=== PATIENT | male | born 1930 | race Caucasian/White ===

== ENCOUNTER 2016-12-25 12:34 | Inpatient (IN) | payer MEDICARE ==
[~2016-12-25] VITALS: Ht 180.3 cm; Wt 122.2 kg
[~2016-12-25 12:34] MED LIST: AMLO2.5T PO; CEPH500C3 PO; LOVA1TAB47 PO; VICO7.5T PO
[2016-12-25 12:36] VITALS: BP 154/97; PULSE 89; RESP 20; TEMP 97.5; O2SAT 96
--- NOTE | 2016-12-25 12:56 | PD ---
Physical Exam Time Seen by Provider: 12:54 Narrative Pt presents to the ED for evaluation of BLE and abdominal edema for 1 month. SOB when laying down to sleep. Denies hx of heart failure. VSS. Awaiting bed placement. Data Data Last Documented VS Vital Signs Date Time Temp Pulse Resp B/P Pulse Ox O2 Delivery O2 Flow Rate FiO2 12/25/16 12:36 97.5 89 20 154/97 96 Room Air MDM Supervised Visit with ALEJANDRO: Gaby Rothman Dec 25, 2016 12:56
[2016-12-25] MEDS ORDERED: POTA-243 PO (13:36)
[2016-12-25] MEDS ORDERED: DOXY100C PO (13:36)
[2016-12-25] MEDS ORDERED: DOXY50 PO (13:36)
[2016-12-25] MEDS ORDERED: AMLO1POW4 (13:38)
[2016-12-25 13:40] VITALS: BP 182/82; PULSE 87; RESP 15; O2SAT 95
[2016-12-25] MEDS ORDERED: SODIUM CHLORIDE 0.9% FLUSH 10 ML FLUSH IV FLUSH PRN ×2 (14:45→19:00)
--- NOTE | 2016-12-25 15:11 | RADRPT ---
EXAM DATE/TIME: 12/25/2016 14:47 [facility] COMPARISON: No previous studies available for comparison. INDICATIONS : Cough, abdomen and feet swelling. MEDICAL HISTORY : None. SURGICAL HISTORY : None. ENCOUNTER: Initial ACUITY: 1 month PAIN SCORE: 0/10 LOCATION: Bilateral chest FINDINGS: A single view of the chest demonstrates the lungs to be symmetrically aerated without evidence of mas s, infiltrate or effusion. The cardiomediastinal contours are unremarkable. Osseous structures are intact. CONCLUSION: No acute disease. Rajendra Koch MD FACR on December 25, 2016 at 15:08 Board Certified Radiologist. This report was verified electronically.
--- NOTE | 2016-12-25 15:15 | PD ---
HPI Chief Complaint: GI Complaint Time Seen by Provider: 13:50 Travel History International Travel<30 days: No Contact w/Intl Traveler<30days: No Traveled to known affect area: No History of Present Illness HPI 86-year-old male came to the emergency room with history of abdominal distention and bilateral pedal edema that has been going on for past 1 month. Patient says he has gained about 25 pounds since this is started. He had seen his primary care physician for this who started him on lisinopril 10 mg. However patient has not had any change in his status. There is some degree of shortness of breath especially if he tries to lay flat. No history of chest pain. Vital signs were stable. Patient does not have any cardiac issue as for as he knows. He has history of cancer mainly prostate that was operated and melanoma that was operated as well. [facility] Past Medical History Narrative Medical List of his past medical, surgical, social and family history is reviewed from the nursing note. Hx Anticoagulant Therapy: Yes Cancer: Yes (SKIN CA) Cardiovascular Problems: Yes High Cholesterol: Yes Chemotherapy: Yes (Prostate) Endocrine: No Genitourinary: No Hypertension: Yes Immune Disorder: No Musculoskeletal: No Neurologic: No Psychiatric: No Reproductive: No Respiratory: No Radiation Therapy: Yes Tetanus Vaccination: < 5 Years Influenza Vaccination: Yes Past Surgical History Appendectomy: Yes Genitourinary Surgery: Yes (prostatectomy due to cancer) Joint Replacement: Yes (LT KNEE, LT JAW) Pacemaker: No Prostatectomy: Yes Social History Alcohol Use: No Tobacco Use: No Substance Use: No Allergies-Medications (Allergen,Severity, Reaction): Coded Allergies: No Known Allergies (Unverified , 12/25/16) Comments No known drug allergies. Reported Meds & Prescriptions Reported Meds & Active Scripts Active Reported Amlodipine Besylate 1 Gm Powder Klor-Con 10 (Potassium Chloride) 10 Meq Tab 10 Meq PO DAILY Doxycycline Hyclate 50 Mg Cap 50 Mg PO BID Doxycycline Hyclate 100 Mg Cap 100 Mg PO BID Narrative Medication List of his home medications reviewed from the nursing note. Review of Systems Except as stated in HPI: all other systems reviewed are Neg Physical Exam Narrative GENERAL: Awake, alert, morbidly obese, moderate distress SKIN: Focused skin assessment warm/dry. Edema below the nipple line HEAD: Atraumatic. Normocephalic. EYES: Pupils equal and round. No scleral icterus. No injection or drainage. ENT: No nasal bleeding or discharge. Mucous membranes pink and moist. NECK: Trachea midline. No JVD. CARDIOVASCULAR: Regular rate and rhythm. No murmur appreciated. RESPIRATORY: No accessory muscle use. Clear to auscultation. Breath sounds equal bilaterally. GASTROINTESTINAL: Abdomen soft, non-tender, distended but soft. Hepatic and splenic margins not palpable. MUSCULOSKELETAL: No obvious deformities. No clubbing. No cyanosis. 3+ pedal edema. NEUROLOGICAL: Awake and alert. No obvious cranial nerve deficits. Motor grossly within normal limits. Normal speech. PSYCHIATRIC: Appropriate mood and affect; insight and judgment normal. Data Data Last Documented VS Vital Signs Date Time Temp Pulse Resp B/P Pulse Ox O2 Delivery O2 Flow Rate FiO2 12/25/16 17:49 162/90 97 Room Air 12/25/16 17:48 77 16 12/25/16 12:36 97.5 Orders Complete Blood Count With Diff (12/25/16 14:45) Comprehensive Metabolic Panel (12/25/16 14:45) Lipase (12/25/16 14:45) Prothrombin Time / Inr (Pt) (12/25/16 14:45) Urinalysis - C+S If Indicated (12/25/16 14:45) Ct Abd/Pel W Iv Contrast(Rout) (12/25/16 14:45) Iv Access Insert/Monitor (12/25/16 14:45) Ecg Monitoring (12/25/16 14:45) Oximetry (12/25/16 14:45) Sodium Chloride 0.9% Flush (Ns Flush) (12/25/16 14:45) Electrocardiogram (12/25/16 14:45) B-Type Natriuretic Peptide (12/25/16 14:45) Troponin I (12/25/16 14:45) Chest, Single Ap (12/25/16 ) Sodium Chlor 0.9% 1000 Ml Inj (Ns 1000 M (12/25/16 17:00) Iohexol 350 Inj (Omnipaque 350 Inj) (12/25/16 17:09) Ct Abd/Pel W/O Iv Contrast (12/25/16 ) Admit To Inpatient (12/25/16 ) Vital Signs (Adult) MEGHAN.Q4H (12/25/16 18:03) Activity Oob Ad Kimberly (12/25/16 18:03) Resp Oxygen Moses C Titrat 1-4 L (12/25/16 ) Sodium Chloride 0.9% Flush (Ns Flush) (12/25/16 21:00) Inpatient Certification (12/25/16 ) Admit Order (Ed Use Only) (12/25/16 18:07) Labs Laboratory Tests Test 12/25/16 12/25/16 14:20 14:30 White Blood Count 8.5 TH/MM3 Red Blood Count 5.63 MIL/MM3 Hemoglobin 16.4 GM/DL Hematocrit 50.2 % Mean Corpuscular Volume 89.2 FL Mean Corpuscular Hemoglobin 29.2 PG Mean Corpuscular Hemoglobin 32.7 % Concent Red Cell Distribution Width 15.4 % Platelet Count 300 TH/MM3 Mean Platelet Volume 7.9 FL Neutrophils (%) (Auto) 63.4 % Lymphocytes (%) (Auto) 24.9 % Monocytes (%) (Auto) 9.5 % Eosinophils (%) (Auto) 1.6 % Basophils (%) (Auto) 0.6 % Neutrophils # (Auto) 5.4 TH/MM3 Lymphocytes # (Auto) 2.1 TH/MM3 Monocytes # (Auto) 0.8 TH/MM3 Eosinophils # (Auto) 0.1 TH/MM3 Basophils # (Auto) 0.1 TH/MM3 CBC Comment DIFF FINAL Differential Comment Prothrombin Time 10.8 SEC Prothromb Time International 1.0 RATIO Ratio Sodium Level 139 MEQ/L Potassium Level 4.4 MEQ/L Chloride Level 106 MEQ/L Carbon Dioxide Level 27.3 MEQ/L Anion Gap 6 MEQ/L Blood Urea Nitrogen 27 MG/DL Creatinine 1.18 MG/DL Estimat Glomerular Filtration 59 ML/MIN Rate Random Glucose 104 MG/DL Calcium Level 9.8 MG/DL Total Bilirubin 0.2 MG/DL Aspartate Amino Transf 27 U/L (AST/SGOT) Alanine Aminotransferase 25 U/L (ALT/SGPT) Alkaline Phosphatase 121 U/L Troponin I LESS THAN 0.02 NG/ML B-Type Natriuretic Peptide 44 PG/ML Total Protein 5.8 GM/DL Albumin 1.3 GM/DL Lipase 121 U/L Urine Color YELLOW Urine Turbidity HAZY Urine pH 6.5 Urine Specific [place] 1.045 Urine Protein GREATER THAN 600 mg/dL Urine Glucose (UA) NEG mg/dL Urine Ketones NEG mg/dL Urine Occult Blood MOD Urine Nitrite NEG Urine Bilirubin NEG Urine Urobilinogen LESS THAN 2.0 MG/DL Urine Leukocyte Esterase NEG Urine RBC 2 /hpf Urine WBC 4 /hpf Urine Squamous Epithelial 1 /hpf Cells Urine Hyaline Casts 9 /lpf Urine Mucus MANY /lpf Microscopic Urinalysis Comment CULT NOT INDICATED MDM Medical Decision Making Medical Screen Exam Complete: Yes Emergency Medical Condition: Yes Medical Record Reviewed: Yes Interpretation(s) Twelve-lead EKG was reviewed by me. Normal sinus rhythm, left axis deviation, PACs, first-degree AV block, incomplete right bundle branch block, nonspecific ST-T wave changes. Heart rate of 77 bpm. Differential Diagnosis Intra-abdominal mass compressing on the IVC, congestive heart failure, right- sided heart failure Narrative Course 3:15 PM awaiting for the blood test results. Awaiting for the CAT scan to be done and resulted. 5:40 PM UA and chemistry suggestive of some dehydration. He was given 1 L of IV fluid bolus. The CAT scan was done and the radiologist call me with a report of a heterogeneous large intra-abdominal mass that he could see. The origin of the mass is unknown at this point. He has requested for a CT without IV contrast. This has been ordered. Awaiting for the CT to be done and resulted. Procedures EKG Prior to Arrival: No Diagnosis Primary Impression: Intraabdominal mass Additional Impressions: Ascites Qualified Code: R18.0 - Malignant ascites Pedal edema Admitting Information Admitting Physician Requests: Admit Scripts Ciprofloxacin (Cipro)500 Mg [id number] Mg PO BID 7 Days Ref 0 Prov:Nevin Espinal 12/27/16 Ondansetron Odt (Zofran Odt)4 Mg Tab4 Mg SL Q6HR PRN (Nausea/Vomiting) #10 TAB Ref 0 Prov:Ahsan Cowart MD R1 12/27/16 Hydrocodone-Acetaminophen ([place])5-325 mg Tab1 Tab PO Q4H PRN (PAIN) #10 TAB Ref 0 Prov:Ahsan Cowart MD R1 12/27/16 Alisha Laird MD Dec 25, 2016 15:15
[2016-12-25 15:38] LABS: AUTOMATED NEUTROPHIL # 5.4 TH/MM3 (1.8-7.7); BASOPHIL # 0.1 TH/MM3 (0-0.2); BASOPHIL % 0.6 % (0.0-2.0); EOSINOPHIL # 0.1 TH/MM3 (0-0.4); EOSINOPHIL % 1.6 % (0.0-4.0); HEMATOCRIT 50.2 % (39.0-51.0); HEMO FLAGS DIFF FINAL; LYMPH % 24.9 % (9.0-44.0); LYMPHOCYTE # 2.1 TH/MM3 (1.0-4.8); MEAN CELL VOLUME 89.2 FL (80.0-100.0); MEAN CORPUSCULAR HEMOGLOBIN 29.2 PG (27.0-34.0); MEAN CORPUSCULAR HGB CONC 32.7 % (32.0-36.0); MONO % 9.5 % (0.0-8.0); NEUT % 63.4 % (16.0-70.0); PLATELET COUNT 300 TH/MM3 (150-450); RED BLOOD COUNT 5.63 MIL/MM3 (4.50-5.90); RED CELL DISTRIBUTION WIDTH 15.4 % (11.6-17.2); WHITE BLOOD COUNT 8.5 TH/MM3 (4.0-11.0)
[2016-12-25 15:51] LABS: BLOOD, URINE MOD (NEG); COMMENT (UR) CULT NOT INDICATED; CULTURE IF INDICATED CULT NOT INDICATED; GLUCOSE,URINE NEG (NEG); HYALINE CAST, URINE 9 /lpf (RARE); KETONE, URINE NEG (NEG); MUCUS URINE MANY /lpf (OCC); NITRITE,URINE NEG (NEG); PH, URINE 6.5 (5.0-8.5); SQUAMOUS EPITHELIAL CELL URINE 1 /hpf (0-5); URINE COLOR YELLOW (YELLW/STRAW)
[2016-12-25 15:57] LABS: PROTHROMBIN TIME - PATIENT 10.8 SEC (9.8-11.6)
[2016-12-25 16:01] LABS: ANION GAP 6 MEQ/L (5-15); AST (GOT) 27 U/L (15-37); BICARBONATE 27.3 MEQ/L (21.0-32.0); BLOOD UREA NITROGEN 27 MG/DL (7-18); CHLORIDE 106 MEQ/L (98-107); GLOMERULAR FILTRATION RATE 59 ML/MIN (>89); POTASSIUM 4.4 MEQ/L (3.5-5.1); SODIUM (NA) 139 MEQ/L (136-145)
[2016-12-25 16:07] LABS: ALKALINE PHOSPHATASE 121 U/L (45-117); ALT (GPT) 25 U/L (12-78); TOTAL BILIRUBIN ADULT 0.2 MG/DL (0.2-1.0)
[2016-12-25] MEDS ORDERED: SODIUM CHLOR 0.9% 1000 ML INJ 1,000 ML IV ONE (17:00)
[2016-12-25] MEDS ORDERED: IOHEXOL 350 MG/ML 10 ML VIAL (for RAD DIAG) IV ONE (17:09)
[2016-12-25 17:48] VITALS: BP 165/92; PULSE 77; RESP 16; O2SAT 96
[2016-12-25 17:49] VITALS: BP 162/90; O2SAT 97
--- NOTE | 2016-12-25 18:05 | RADRPT ---
EXAM DATE/TIME: 12/25/2016 17:07 [facility] COMPARISON: No previous studies available for comparison. INDICATIONS : Diffuse abdomen pain with ascites. IV CONTRAST: 96 cc Omnipaque 350 (iohexol) IV ORAL CONTRAST: No oral contrast ingested. RADIATION DOSE: 16.78 CTDIvol (mGy) MEDICAL HISTORY : Hypertension. Cardiovascular disease SURGICAL HISTORY : Appendectomy. Prostatectomy. ENCOUNTER: Initial ACUITY: 4 - 6 days PAIN SCALE: 5/10 LOCATION: Bilateral abdomen TECHNIQUE: Volumetric scanning of the abdomen and pelvis was performed. Using automated exposure control and ad justment of the mA and/or kV according to patient size, radiation dose was kept as low as reasonably achievable to obtain optimal diagnostic quality images. DICOM format image data is available electro nically for review and comparison. FINDINGS: LOWER LUNGS: Trace left and trace right pleural effusions calcified granulomas at the left lung base. LIVER: There is a 1.2 cm hypodense lesion in the deep posterior right lobe of the liver which is too small t o fully characterize. Liver is otherwise grossly unremarkable. Spleen is normal in size. Several smal l calcifications in the spleen consistent with prior granulomatous disease. PANCREAS: Within normal limits. KIDNEYS: Kidneys demonstrate symmetrical size and symmetrical enhancement. There is ill-defined isodense lesio n in the inferior pole of the left kidney which appears to emanate from the renal pelvis. No evidence for hydronephrosis. ADRENAL GLANDS: Within normal limits. VASCULAR: Atherosclerotic opacifications of the infrarenal abdominal aorta. BOWEL/MESENTERY: There is a very large heterogeneous mesenteric mass occupying nearly the entire left abdomen with ass ociated mass effect on the bowel. This mass measures approximately 23.2 x 15.1 x 18.1 cm and is predo minantly fat in density of the there is also a 9.1 x 5.8 x 11.9 cm fluid density component. Additiona l mesenteric and retroperitoneal likely enhancing lesions are also noted. The largest mesenteric mass is in the mid upper abdomen just anterior and inferior to the pancreas measuring 2.6 x 1.9 cm. The l argest retroperitoneal mass or measures 1.5 x 1.4 cm in the posterior perinephric region. There is a small amount of free fluid noted in the deep pelvis. ABDOMINAL WALL: Diffuse soft tissue anasarca particularly in the lower abdomen. RETROPERITONEUM: There is no lymphadenopathy. BLADDER: No wall thickening or mass. REPRODUCTIVE: Postsurgical features are of radical prostatectomy INGUINAL: There is no lymphadenopathy or hernia. MUSCULOSKELETAL: Partially imaged lipoma in the left medial thigh. No definite abnormal lytic or blastic bony lesions. CONCLUSION: 1. Abnormal examination demonstrating a very large heterogeneous predominantly fat containing mesent konstantin mass occupying nearly the entire left abdomen measuring 23.2 x 15.1 x 18.1 cm with additional me senteric and retroperitoneal satellite lesions, as above. In the absence of recent trauma, this mass is concerning for an infiltrative malignancy or lipomatous mass such as liposarcoma. Lack of noncontr ast images limits evaluation of degree of enhancement versus potentially high density material in the mass. Noncontrast CT examination may be performed to definitively assess degree of enhancement. Alte rnatively, MRI examination may be performed for further characterization if there is continued uncert ainty. 2. Ill-defined isodense central lesion in the left renal inferior pole measuring approximately 3.8 x 2.5 cm. Differential considerations include renal lymphoma versus complex parapelvic cyst versus tra nsitional cell carcinoma. This may be further evaluated with MRI or CT renal mass protocol. 3. Trace free fluid in the pelvis with diffuse soft tissue anasarca is prominent in the lower abdomen . 4. Trace bilateral pleural effusions. José Miguel Cannon MD on December 25, 2016 at 17:21 Board Certified Radiologist. This report was verified electronically.
[2016-12-25 18:32] VITALS: BP 158/86
--- NOTE | 2016-12-25 18:37 | HHI.HP ---
HPI Service Family Medicine Primary Care Physician Unknown Admission Diagnosis intra-abdominal mass, possible malignancy, ascites Diagnoses: Chief Complaint: " I have an abdominal mass." International Travel<30 Days: No Contact w/Intl Traveler<30days: No Known Affected Area: No History of Present Illness Patient is a 86 y/o w/ hx of prostate cancer and melanoma removal. Abdominal mass started to appear 4-5 weeks ago. Noticed 22 lb weight gain. No N/V/pain. No fevers, night sweats. No diarrhea. Has noticed constipation in the last couple days this week, relieved with X lax. Has not experienced anything like this in the past. Hx of prostate cancer 20 years ago, treated with surgery. Patient denies change in urine frequency or flow or hematuria. Denies recent travel, insect bites, chest pain, SOB (although states he occasionally has to take a few extra deep breaths), alcohol use, hx of GI disease. Patient is taking doxycycline for recent infection of jaw fissure. Review of Systems Constitutional: COMPLAINS OF: Weight gain, DENIES: Fatigue, Fever, Change in appetite Endocrine: DENIES: Heat/cold intolerance, Polydipsia, Polyuria Eyes: DENIES: Blurred vision, Eye pain, Vision loss Ears, nose, mouth, throat: DENIES: Hearing loss, Hoarseness, Epistaxis Respiratory: DENIES: Cough, Hemoptysis, Shortness of breath Cardiovascular: COMPLAINS OF: Lower Extremity Edema, DENIES: Chest pain, Palpitations, Syncope Gastrointestinal: DENIES: Abdominal pain, Bloody stools, Diarrhea, Nausea Genitourinary: DENIES: Urinary frequency, Urinary incontinence, Urgency Musculoskeletal: DENIES: Joint pain, Muscle aches, Stiffness Integumentary: DENIES: Abnormal pigmentation, Nail changes, Rash Hematologic/lymphatic: DENIES: Bruising Neurologic: DENIES: Headache, Localized weakness, Seizures Psychiatric: DENIES: Anxiety, Mood changes, Depression Past Family Social History Past Medical History HTN, hx of infection of jaw fissure, hx of cancer Allergies: Coded Allergies: No Known Allergies (Unverified , 12/25/16) Family History Mom: age 94, no known cause Dad: 68, cancer Social History No smoking or drinking. No recreational drugs. Physical Exam Vital Signs Vital Signs Date Time Temp Pulse Resp B/P Pulse Ox O2 Delivery O2 Flow Rate FiO2 12/25/16 17:49 162/90 97 Room Air 12/25/16 17:48 77 16 165/92 96 Room Air 12/25/16 13:40 16 12/25/16 13:40 87 15 182/82 95 Room Air 12/25/16 12:36 97.5 89 20 154/97 96 Room Air Physical Exam GENERAL: This is a well-nourished, well-developed patient, in no apparent distress. SKIN: No rashes, ecchymoses or lesions. Cool and dry. HEAD: Atraumatic. Normocephalic. EYES: Pupils equal round and reactive. Extraocular motions intact. No scleral icterus. No injection or drainage. ENT: Throat without erythema, tonsillar hypertrophy or exudate. Uvula midline. Airway patent. NECK: Trachea midline. No JVD. CARDIOVASCULAR: Regular rate and rhythm. 3/6 systolic murmer in the right upper sternal border. RESPIRATORY: Clear to auscultation. Breath sounds equal bilaterally. No wheezes , rales, or rhonchi. GASTROINTESTINAL: Abdomen significantly distended. Dull to percussion. Diminished bowel sounds in all four quadrants. No hepato-splenomegaly, or palpable masses. Non-tender to palpation. MUSCULOSKELETAL: 3+ pitting edema in the lower extremities. 2+ pitting edema in the upper extremities. No cyanosis. NEUROLOGICAL: Awake and alert. Cranial nerves II through XII intact. Motor and sensory grossly within normal limits. Five out of 5 muscle strength in all muscle groups. Normal speech. Laboratory Laboratory Tests Test 12/25/16 12/25/16 14:20 14:30 White Blood Count 8.5 Red Blood Count 5.63 Hemoglobin 16.4 Hematocrit 50.2 Mean Corpuscular Volume 89.2 Mean Corpuscular Hemoglobin 29.2 Mean Corpuscular Hemoglobin 32.7 Concent Red Cell Distribution Width 15.4 Platelet Count 300 Mean Platelet Volume 7.9 Neutrophils (%) (Auto) 63.4 Lymphocytes (%) (Auto) 24.9 Monocytes (%) (Auto) 9.5 Eosinophils (%) (Auto) 1.6 Basophils (%) (Auto) 0.6 Neutrophils # (Auto) 5.4 Lymphocytes # (Auto) 2.1 Monocytes # (Auto) 0.8 Eosinophils # (Auto) 0.1 Basophils # (Auto) 0.1 CBC Comment DIFF FINAL Differential Comment Prothrombin Time 10.8 Prothromb Time International 1.0 Ratio Sodium Level 139 Potassium Level 4.4 Chloride Level 106 Carbon Dioxide Level 27.3 Anion Gap 6 Blood Urea Nitrogen 27 Creatinine 1.18 Estimat Glomerular Filtration 59 Rate Random Glucose 104 Calcium Level 9.8 Total Bilirubin 0.2 Aspartate Amino Transf 27 (AST/SGOT) Alanine Aminotransferase 25 (ALT/SGPT) Alkaline Phosphatase 121 Troponin I LESS THAN 0.02 B-Type Natriuretic Peptide 44 Total Protein 5.8 Albumin 1.3 Lipase 121 Urine Color YELLOW Urine Turbidity HAZY Urine pH 6.5 Urine Specific [place] 1.045 Urine Protein GREATER THAN 600 Urine Glucose (UA) NEG Urine Ketones NEG Urine Occult Blood MOD Urine Nitrite NEG Urine Bilirubin NEG Urine Urobilinogen LESS THAN 2.0 Urine Leukocyte Esterase NEG Urine RBC 2 Urine WBC 4 Urine Squamous Epithelial 1 Cells Urine Hyaline Casts 9 Urine Mucus MANY Microscopic Urinalysis Comment CULT NOT INDICATED Result Diagram: 12/25/16 1420 12/25/16 1420 Imaging Last Impressions Abdomen/Pelvis CT 12/25/16 1445 Signed Impressions: Service Date/Time: Sunday, December 25, 2016 17:07 - CONCLUSION: 1. Abnormal examination demonstrating a very large heterogeneous predominantly fat containing mesenteric mass occupying nearly the entire left abdomen measuring 23.2 x 15.1 x 18.1 cm with additional mesenteric and retroperitoneal satellite lesions, as above. In the absence of recent trauma, this mass is concerning for an infiltrative malignancy or lipomatous mass such as liposarcoma. Lack of noncontrast images limits evaluation of degree of enhancement versus potentially high density material in the mass. Noncontrast CT examination may be performed to definitively assess degree of enhancement. Alternatively, MRI examination may be performed for further characterization if there is continued uncertainty. 2. Ill-defined isodense central lesion in the left renal inferior pole measuring approximately 3.8 x 2.5 cm. Differential considerations include renal lymphoma versus complex parapelvic cyst versus transitional cell carcinoma. This may be further evaluated with MRI or CT renal mass protocol. 3. Trace free fluid in the pelvis with diffuse soft tissue anasarca is prominent in the lower abdomen. 4. Trace bilateral pleural effusions. José Miguel Cannon MD Chest X-Ray 12/25/16 0000 Signed Impressions: Service Date/Time: Wednesday, December 25, 2016 14:47 - CONCLUSION: No acute disease. Rajendra Koch MD FACR Assessment and Plan Assessment and Plan 86 y/o M w/hx of prostate cancer and melanoma who is admitted for work-up of abdominal mass. CT of abdomen on admission shows 23.2 x 15.1 x 18.1 cm mesenteric mass and retroperitoneal satellite lesion, Ill-defined isodense central lesion in the left renal inferior pole measuring approximately 3.8 x 2.5 cm, and free fluid and diffuse anasarca. Abdominal enlargement likely due to multiple cancerous tumors. Code Status FULL Discussed Condition With Patient and at bedside. 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 Was given in the ED - Will hold off lasix for now, will assess tomorrow with new labs (CBC, CMP) (3) Systolic murmur Status: Acute Plan: - 3/6 murmer heard in the upper right sternal border -patient has no cardiac hx - will order echo (4) HTN (hypertension) Status: Acute Plan: - controlled on home med amlodipine - patient forgot to take today. Last recorded . - start amlodipine 5 mg PO daily FEN: regular diet, NPO after midnight DVT prophy: SCDs Dispo: Pending consultation with onc and surgery. Physician Certification 2 Midnight Certification Type: Admission for Inpatient Services Order for Inpatient Services The services are ordered in accordance with Medicare regulations or non- Medicare payer requirements, as applicable. In the case of services not specified as inpatient-only, they are appropriately provided as inpatient services in accordance with the 2-midnight benchmark. Estimated LOS (days): 3 days is the estimated time the patient will need to remain in the hospital, assuming treatment plan goals are met and no additional complications. Post-Hospital Plan: Home Christie Wright MD R1 Dec 25, 2016 18:37
[2016-12-25] MEDS ORDERED: ACETAMINOPHEN 325 MG TAB PO PRN (19:00)
[2016-12-25] MEDS ORDERED: ONDANSETRON HCL 4 MG/2 ML VIAL IVP PRN (19:00)
[2016-12-25] MEDS ORDERED: NALOXONE HCL 0.4 MG/ML AMP IV PRN (19:00)
[2016-12-25] MEDS ORDERED: SENNOSIDES 8.6 MG TAB PO PRN (19:00)
[2016-12-25] MEDS ORDERED: BISACODYL 10 MG SUPP RECTAL PRN (19:00)
[2016-12-25] MEDS ORDERED: LACTULOSE SYRUP 20 GM/30 ML CUP PO PRN (19:00)
[2016-12-25] MEDS ORDERED: MAGNESIUM HYDROXIDE SUSP 30 ML CUP PO PRN (19:00)
[2016-12-25 20:00] VITALS: BP 178/99; PULSE 78; RESP 18; TEMP 96; O2SAT 95
[2016-12-25] MEDS ORDERED: SODIUM CHLORIDE 0.9% FLUSH 10 ML FLUSH IV FLUSH SCH (21:00)
[2016-12-25] MEDS: SODIUM CHLORIDE 0.9% FLUSH 10 ML FLUSH IV FLUSH SCH (21:00)
[2016-12-25] MEDS: DOCUSATE SODIUM 50 MG/SENNA 8.6 MG TAB PO SCH (21:00)
[2016-12-25] MEDS ORDERED: amLODIPine BESYLATE 5 MG TAB PO ONE (22:00)
[2016-12-25] MEDS ORDERED: ENALAPRILAT 1.25 MG/ML VIAL IV PRN (22:00)
[2016-12-25] MEDS ORDERED: SODIUM CHLORID 0.9% 500 ML INJ 500 ML IV ONE (22:45)
[2016-12-26] VITALS (7 sets, daily range): BP systolic 145–163; BP diastolic 72–89; PULSE 76–91; RESP 16–18; TEMP 96.4–98.4; O2SAT 93–99
--- NOTE | 2016-12-26 05:49 | MB ---
cc: YVONNE GARNER,GIA Robertson MD DATE OF 1930 DATE OF SERVICE 12/25/[address] Soriano Antibody identification CHIEF COMPLAINT Dr. Wright requests a consultation for Mr. Quiñones with abdominal mass, suspected sarcoma. HISTORY OF PRESENT ILLNESS Mr. Quiñones is an 86-year-old man with history of prostate cancer and melanoma. He has excellent performance status. He lives with his . He continues to drive. He has a great appetite, no changes in bowel habits. He has no early satiety. He has been gaining weight. He reports that he has been obese later on in life but he is noted an increase in his abdominal girth over the last 4-5 weeks. He has noticed a 22-pound weight gain over the past month. He presented to the emergency room with GI complaints of the abdominal distension. He has developed pedal edema. He had some shortness of breath when he lies flat although he denies any symptoms lying on his side. Imaging study was performed, a CT scan of the abdomen and pelvis on 12/25/2016 that shows an abnormal, large, heterogeneous fat-containing mesenteric mass occupying the entire left abdomen measuring 23.2 x 15.1 x 18.1-cm. There are additional mesenteric and retroperitoneal satellite lesions. There is also an ill-defined isodense central lesion in the left kidney measuring 3.8 x 2.5 cm. There is trace pleural effusion and questionable 1.2 cm hyperdense lesion in the posterior right lobe of the liver. This was considered too small to fully characterize on CT scan. He is admitted for evaluation of the above. His labs shows normal renal function. His BUN is mildly elevated at 27. Renal function shows a creatinine of 1.18, alkaline phosphatase is elevated. His albumin is decreased at 1.3. Urinalysis shows a significant amount of proteinuria and occult blood positivity. He denies any fevers, chills or night sweats. PAST MEDICAL HISTORY 1. Hypertension. 2. Prostate cancer. 3. Melanoma. 4. Obesity. 5. Lower extremity edema. 6. 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 PAST SURGICAL HISTORY 1. Appendectomy. 2. Prostatectomy. 3. Left jaw surgery. SOCIAL HISTORY He is , lives with his . Denies any tobacco, alcohol or illicit drug use. He is a never smoker. FAMILY HISTORY Father of head and neck cancer/throat cancer at age 64. Mother of an cerebral aneurysm at age 94. PHYSICAL EXAMINATION VITAL SIGNS: Temperature 96.0, heart rate 78, respiratory rate 18, blood pressure 178/99, saturation 95%. GENERAL: Mr. Quiñones is a well-developed, well-nourished, pleasant elderly man in no acute distress. His pupils are round, reactive to light and accommodation. Oropharynx is clear. NECK: Supple. The defect in his left jaw, well-healed scar. LUNGS: Clear to auscultation. CARDIOVASCULAR: Exam reveals normal rate and rhythm. ABDOMEN: Large and distended. There is a mass in firmness occupying the left side of the abdomen. The right side is soft. No inguinal adenopathy. No axillary adenopathy. EXTREMITIES: Lower extremity with 2+ pitting edema. Good pulses are palpable. LABORATORY DATA As described above. IMAGING STUDIES Described above. ASSESSMENT AND PLAN Mr. Quiñones is an 86-year-old man with history of hypertension, melanoma and prostate cancer. He has experienced a 22-pound weight gain and increasing abdominal girth. Imaging studies show a large mesenteric mass on the left side in addition to a kidney mass, a questionable liver lesion and satellite lesion of the mesenteric mass. I had a lengthy discussion with Mr. Quiñones of the differential diagnoses for this mass. Concerning in light of its radiographic features is a liposarcoma. We discussed the differential to include liposarcoma versus kidney cancer versus lymphoma. MRI of the abdomen and pelvis have already been ordered by Dr. Laird. We will follow these results. It would help to delineate better the 1.2 cm lesion in the liver to rule out metastatic disease. The mesenteric mass is concerning for sarcoma. There is a renal mass. Whether this is metastatic renal cell cancer versus two primaries is concerning. CT scan of the chest will be performed to rule out metastatic disease. Noted is a pleural effusion which may be related to the pressure and congestion of the large abdominal mass. He is noted to have lower extremity edema as his main presentation. 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 A 24-hour urine protein evaluation will be initiated up. It is possible that direct compression may cause the above changes. It does not, however, explain the low albumin that is seen in his laboratory evaluation. The case was discussed with Radiology. I would be in favor of CT-guided biopsy given the proximity of the mass in the abdominal wall. This would be an easy biopsy to obtain a diagnosis. It is also concerning that he may not be a surgical candidate at the rapidity of which this mass is growing from his clinical history. The oncologic surgeon, Dr. Miramontes, has been consulted. Mr. Quiñones's questions were answered to his satisfaction. Yvonne Garner MD RAD/SSB /10:57 PM /5:34 AM
[2016-12-26 06:35] LABS: AUTOMATED NEUTROPHIL # 4.3 TH/MM3 (1.8-7.7); BASOPHIL # 0.1 TH/MM3 (0-0.2); BASOPHIL % 0.8 % (0.0-2.0); EOSINOPHIL # 0.2 TH/MM3 (0-0.4); EOSINOPHIL % 2.3 % (0.0-4.0); HEMATOCRIT 48.6 % (39.0-51.0); HEMO FLAGS DIFF FINAL; LYMPH % 31.9 % (9.0-44.0); LYMPHOCYTE # 2.5 TH/MM3 (1.0-4.8); MEAN CELL VOLUME 88.5 FL (80.0-100.0); MEAN CORPUSCULAR HEMOGLOBIN 29.3 PG (27.0-34.0); MEAN CORPUSCULAR HGB CONC 33.1 % (32.0-36.0); MONO % 9.3 % (0.0-8.0); NEUT % 55.7 % (16.0-70.0); PLATELET COUNT 312 TH/MM3 (150-450); RED BLOOD COUNT 5.49 MIL/MM3 (4.50-5.90); RED CELL DISTRIBUTION WIDTH 15.3 % (11.6-17.2); WHITE BLOOD COUNT 7.7 TH/MM3 (4.0-11.0)
[2016-12-26 06:46] LABS: ALT (GPT) 23 U/L (12-78); ANION GAP 5 MEQ/L (5-15); AST (GOT) 22 U/L (15-37); BICARBONATE 26.4 MEQ/L (21.0-32.0); BLOOD UREA NITROGEN 25 MG/DL (7-18); CHLORIDE 110 MEQ/L (98-107); GLOMERULAR FILTRATION RATE 63 ML/MIN (>89); POTASSIUM 4.3 MEQ/L (3.5-5.1); SODIUM (NA) 141 MEQ/L (136-145)
[2016-12-26 06:49] LABS: ALKALINE PHOSPHATASE 112 U/L (45-117); LDH SERUM 123 U/L (87-241); TOTAL BILIRUBIN ADULT 0.2 MG/DL (0.2-1.0)
--- NOTE | 2016-12-26 07:40 | HHI.FPPN ---
Subjective Remarks Carlos Quiñones is an 86 yo gentleman with history of prostate cancer and melanoma who initially presented to ER for abdominal distention and peripheral edema of 4 -5 week duration. Associated with 20 pound weight gain. He denies fevers, night sweats, SOB. + recent constipation, which resolved with ex lax. For further details, please see resident H&P. This morning, he is seen with his significant other at the bedside. He and his partner express understanding regarding the concern for cancer. They are potentially interested in seeking care at [facility], once results are obtained. Overnight, he reports some difficulty sleeping, both from mind racing with anticipated diagnosis and with discomfort in hospital bed. Last BM yesterday, described as loose secondary to doxycycline use. ROS: + edema. No SOB, No chest pain. + difficulty sleeping. + recent weight gain (edema). No n/v, no abdominal pain. All other systems reviewed are negative. PMH/PSxH/SocHx/FamHx: Per resident H&P. Significant for: HTN, melanoma s/p surgical resection, prostate CA s/p prostatectomy. 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 Appendectomy. Father from head and neck cancer at 64yo. Mother with aneurysm in her 90s. Lives with significant other. No tobacco, alcohol, or recreational drug use. 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 Objective Vitals Vital Signs Date Time Temp Pulse Resp B/P Pulse Ox O2 Delivery O2 Flow Rate FiO2 12/26/16 04:00 96.6 82 18 150/83 98 12/26/16 00:00 96.9 85 18 146/72 97 12/25/16 20:00 96.0 78 18 178/99 95 12/25/16 18:32 78 16 158/86 97 12/25/16 17:49 162/90 97 Room Air 12/25/16 17:48 77 16 165/92 96 Room Air 12/25/16 13:40 16 12/25/16 13:40 87 15 182/82 95 Room Air 12/25/16 12:36 97.5 89 20 154/97 96 Room Air I/O 12/25/16 12/25/16 12/25/16 12/26/16 12/26/16 12/26/16 07:00 15:00 23:00 07:00 15:00 23:00 Intake Total 480 ml Output Total 250 ml Balance 230 ml Intake Oral 480 ml Output Urine Total 250 ml Result Diagram: 12/26/16 0523 12/26/16522 Objective Remarks GENERAL: in NAD, no resp distress. Nontoxic. Accompanied by significant other. HEENT: NCAT, EOMI, no scleral icterus. No conjunctival injection. MMM. NECK: Supple, no meningeal signs. No carotid bruits. CV: 2/6 systolic murmur heard best at right upper sternal border. RRR, S1 S2. CHEST/PULM: CTAB, no crackles, no wheezes. ABD/GI: +BS, soft, Nontender. Obese. Mild distention. Dullness to percussion along left abdomen, which correlates to firmness / mass palpable. EXT: 2+ pitting edema to knee. 1+ pitting edema at upper extremities. No calf tenderness. NEURO: awake, alert, normal muscle tone. Grossly nonfocal. SKIN: No rashes, no jaundice. PSYCH: Mood and affect are appropriate. Speech fluent. Does not appear to respond to internal stimuli. A/P Assessment and Plan 86 y/o M w/hx of prostate cancer and melanoma who is admitted for work-up of abdominal mass. CT of abdomen on admission shows 23.2 x 15.1 x 18.1 cm mesenteric mass and retroperitoneal satellite lesion, Ill-defined isodense central lesion in the left renal inferior pole measuring approximately 3.8 x 2.5 cm, and free fluid and diffuse anasarca. Abdominal enlargement likely due to multiple cancerous tumors. Attending Attestation Patient seen, examined, and discussed with resident team. The patient has been seen and examined. The chart and all resident notes have been reviewed. I agree that inpatient care is appropriate and that a two midnight stay is expected for the reasons documented in the resident history and physical. I have discussed this with the resident and certify the resident s order for inpatient admission. Problem List: (1) Intraabdominal mass Status: Acute Plan: Concern for malignancy. CT guided biopsy ordered [facility]. Await recs pending results of biopsy. Diagnostic evaluation: CT abdomen with IV contrast: (1) Abnormal examination demonstrating a very large heterogeneous predominantly fat containing mesenteric mass occupying nearly the entire left abdomen measuring 23.2 x 15.1 x 18.1 cm with additional mesenteric and retroperitoneal satellite lesions. In the absence of recent trauma, this mass is concerning for an infiltrative malignancy of lipomatous mass such as liposarcoma. (2) Ill-defined isodense central lesion in the left renal inferior pole measuring approximately 3.8 x 2.5 cm. Differential considerations include renal lymphoma vs complex parapelvic cyst vs transitional cell carcinoma. CT abdomen without IV contrast: (1) Inconclusive variable degree of density differences in the large heterogeneous left mesenteric mass without convincing evidence for significant enhancement in the lipomatous portion. There is significant progressive enhancement given recent contrast administration. This may reflect a very homogeneous and uniform mass such as lymphoma. Differential consideration does include sequela of prior trauma with resolving hematoma although apparently this is inconsistent with clinical history. (2) Isodense infiltrative lesion in the mid left renal pelvis which appears to involve the anterior cortex; doesn't appear to emanate from the renal collecting system and demonstrates no significant enhancement. Differential consideration includes complex peripelvic cyst. CT chest: pending MRI abdomen: pending CT guided biopsy of abdomen: pending (2) Edema of extremities Status: Acute Plan: Suspect secondary to third spacing, but patient with protein-wasting nephropathy. Edema mildly improved today. Will monitor and consider lasix administration. (3) Systolic murmur Status: Acute Plan: - 2/6 murmer heard in the upper right sternal border -patient has no cardiac hx and no known valvular disease - Await results of echocardiogram (4) HTN (hypertension) Status: Chronic Plan: - Continue home amlodipine. (5) Proteinuria Status: Acute Plan: Unclear etiology. Await 24 hour urine. Consider nephrology consult based on results. Piedad Palma MD Dec 26, 2016 07:40 Status: Acute Piedad Palma MD Dec 26, 2016 07:40
[2016-12-26] MEDS: SODIUM CHLORIDE 0.9% FLUSH 10 ML FLUSH IV FLUSH SCH ×2 (08:10→21:00)
[2016-12-26] MEDS: DOCUSATE SODIUM 50 MG/SENNA 8.6 MG TAB PO SCH ×2 (09:00→21:00)
--- NOTE | 2016-12-26 10:07 | RADRPT ---
EXAM DATE/TIME: 12/25/2016 18:36 [facility] COMPARISON: CT ABDOMEN & PELVIS W CONTRAST, December 25, 2016, 17:07. INDICATIONS : Abnormal previous CT scan today. ORAL CONTRAST: No oral contrast ingested. RADIATION DOSE: 21.30 CTDIvol (mGy) MEDICAL HISTORY : Carcinoma, prostate. Cardiovascular disease Hypertension. SURGICAL HISTORY : Appendectomy. Prostatectomy. ENCOUNTER: Initial ACUITY: 1 day PAIN SCALE: 0/10 LOCATION: [facility] TECHNIQUE: Volumetric scanning of the abdomen and pelvis was performed. Using automated exposure control and ad justment of the mA and/or kV according to patient size, radiation dose was kept as low as reasonably achievable to obtain optimal diagnostic quality images. DICOM format image data is available electro nically for review and comparison. FINDINGS: Noncontrast CT examination was performed for comparison to post contrast images to determine degree o f enhancement of a large left-sided mesenteric mass. If the apparent uniform fluid density portion of the mass has increased in density on the this examination which may reflect persistent and continued enhancement given recent contrast administration. The logistics service representative sampling of the large predomina ntly lipomatous component of this mass demonstrates indeterminant density differences ranging from 7 to 11 Hounsfield units. Associated satellite lesion noted in the mid mesentery anterior to the inferi or aspect of the pancreas demonstrates progressive increased density similar to the apparent fluid de nsity aspect of the mass. Retroperitoneal posterior perinephric satellite lesion demonstrates signifi cantly decreased density in and is therefore definitively enhancing with contrast administration. Isodense infiltrative lesion noted in the mid left renal pelvis involving the anterior cortex appears to displace the renal collecting system rather than involve the collecting system. There is also no significant difference in density on this examination indicating no significant enhancement or less l ikely lack of washout. CONCLUSION: 1. Inconclusive variable degree of density differences in the large heterogeneous left mesenteric mas s without convincing evidence for significant enhancement in the lipomatous portion. There is significa nt increased density in the previously uniformly fluid density portion of the mass which may reflect progressive enhancement given recent contrast administration. This may reflect a very homogeneous and uniform mass such as lymphoma. Differential consideration does include sequela of prior trauma with resolving hematoma although apparently this is inconsistent with clinical history. Consider image jimmy ded biopsy/aspiration for further evaluation. 2. A small posterior left perinephric retroperitoneal satellite mass does demonstrate definitive enh ancement. 3. Isodense infiltrative lesion in the mid left renal pelvis which appears to involve the anterior c ortex doesn't appear to emanate from the renal collecting system and demonstrates no significant enha ncement. Differential consideration includes complex peripelvic cyst. Further evaluation may be perfo rmed with ultrasound exam or multiphase MRI renal mass protocol. José Miguel Cannon MD on December 26, 2016 at 9:30 Board Certified Radiologist. This report was verified electronically.
[2016-12-26] MEDS ORDERED: diphenhydrAMINE HCL 25 MG CAP PO PRN (10:15)
--- NOTE | 2016-12-26 13:35 | PD.ONC.PN ---
Subjective Subjective Remarks Afebrile overnight Awaiting biopsy Denies pain or shortness of breath Objective Data Date Time Temp Pulse Resp B/P Pulse Ox O2 Delivery O2 Flow Rate FiO2 12/26/16 12:14 93 12/26/16 12:00 96.7 76 18 154/87 99 12/26/16 08:00 98.4 81 18 160/87 96 12/26/16 04:00 96.6 82 18 150/83 98 12/26/16 00:00 96.9 85 18 146/72 97 12/25/16 20:00 96.0 78 18 178/99 95 12/25/16 18:32 78 16 158/86 97 12/25/16 17:49 162/90 97 Room Air 12/25/16 17:48 77 16 165/92 96 Room Air 12/25/16 13:40 16 12/25/16 13:40 87 15 182/82 95 Room Air Result Diagram: 12/26/16 0523 12/26/16 0523 Laboratory Results Laboratory Tests Test 12/25/16 12/25/16 12/26/16 14:20 14:30 05:23 White Blood Count 8.5 TH/MM3 7.7 TH/MM3 Red Blood Count 5.63 MIL/MM3 5.49 MIL/MM3 Hemoglobin 16.4 GM/DL 16.1 GM/DL Hematocrit 50.2 % 48.6 % Mean Corpuscular Volume 89.2 FL 88.5 FL Mean Corpuscular Hemoglobin 29.2 PG 29.3 PG Mean Corpuscular Hemoglobin 32.7 % 33.1 % Concent Red Cell Distribution Width 15.4 % 15.3 % Platelet Count 300 TH/MM3 312 TH/MM3 Mean Platelet Volume 7.9 FL 7.9 FL Neutrophils (%) (Auto) 63.4 % 55.7 % Lymphocytes (%) (Auto) 24.9 % 31.9 % Monocytes (%) (Auto) 9.5 % 9.3 % Eosinophils (%) (Auto) 1.6 % 2.3 % Basophils (%) (Auto) 0.6 % 0.8 % Neutrophils # (Auto) 5.4 TH/MM3 4.3 TH/MM3 Lymphocytes # (Auto) 2.1 TH/MM3 2.5 TH/MM3 Monocytes # (Auto) 0.8 TH/MM3 0.7 TH/MM3 Eosinophils # (Auto) 0.1 TH/MM3 0.2 TH/MM3 Basophils # (Auto) 0.1 TH/MM3 0.1 TH/MM3 CBC Comment DIFF FINAL DIFF FINAL Differential Comment Prothrombin Time 10.8 SEC Prothromb Time International 1.0 RATIO Ratio Sodium Level 139 MEQ/L 141 MEQ/L Potassium Level 4.4 MEQ/L 4.3 MEQ/L Chloride Level 106 MEQ/L 110 MEQ/L Carbon Dioxide Level 27.3 MEQ/L 26.4 MEQ/L Anion Gap 6 MEQ/L 5 MEQ/L Blood Urea Nitrogen 27 MG/DL 25 MG/DL Creatinine 1.18 MG/DL 1.10 MG/DL Estimat Glomerular Filtration 59 ML/MIN 63 ML/MIN Rate Random Glucose 104 MG/DL 83 MG/DL Calcium Level 9.8 MG/DL 9.1 MG/DL Total Bilirubin 0.2 MG/DL 0.2 MG/DL Aspartate Amino Transf 27 U/L 22 U/L (AST/SGOT) Alanine Aminotransferase 25 U/L 23 U/L (ALT/SGPT) Alkaline Phosphatase 121 U/L 112 U/L Troponin I LESS THAN 0.02 NG/ML B-Type Natriuretic Peptide 44 PG/ML Total Protein 5.8 GM/DL 5.4 GM/DL Albumin 1.3 GM/DL 1.2 GM/DL Lipase 121 U/L Urine Color YELLOW Urine Turbidity HAZY Urine pH 6.5 Urine Specific [place] 1.045 Urine Protein GREATER THAN 600 mg/dL Urine Glucose (UA) NEG mg/dL Urine Ketones NEG mg/dL Urine Occult Blood MOD Urine Nitrite NEG Urine Bilirubin NEG Urine Urobilinogen LESS THAN 2.0 MG/DL Urine Leukocyte Esterase NEG Urine RBC 2 /hpf Urine WBC 4 /hpf Urine Squamous Epithelial 1 /hpf Cells Urine Hyaline Casts 9 /lpf Urine Mucus MANY /lpf Microscopic Urinalysis Comment CULT NOT INDICATED Lactate Dehydrogenase 123 U/L Imaging Studies Last 24 hours Impressions Abdomen/Pelvis CT 12/25/16 9566 Signed Impressions: Service Date/Time: Sunday, December 25, 2016 17:07 - CONCLUSION: 1. Abnormal examination demonstrating a very large heterogeneous predominantly fat containing mesenteric mass occupying nearly the entire left abdomen measuring 23.2 x 15.1 x 18.1 cm with additional mesenteric and retroperitoneal satellite lesions, as above. In the absence of recent trauma, this mass is concerning for an infiltrative malignancy or lipomatous mass such as liposarcoma. Lack of noncontrast images limits evaluation of degree of enhancement versus potentially high density material in the mass. Noncontrast CT examination may be performed to definitively assess degree of enhancement. Alternatively, MRI examination may be performed for further characterization if there is continued uncertainty. 2. Ill-defined isodense central lesion in the left renal inferior pole measuring approximately 3.8 x 2.5 cm. Differential considerations include renal lymphoma versus complex parapelvic cyst versus transitional cell carcinoma. This may be further evaluated with MRI or CT renal mass protocol. 3. Trace free fluid in the pelvis with diffuse soft tissue anasarca is prominent in the lower abdomen. 4. Trace bilateral pleural effusions. José Miguel Cannon MD Administered Medications Medications (Trade) Dose Ordered Sig/Shanice Route PRN Reason Start Time Stop Time Status Last Admin Dose Admin Sodium Chloride (NS Flush) 2 ml BID IV FLUSH 12/25/16 21:00 12/26/16 08:10 Objective Remarks GENERAL: Well-appearing older male resting in bed surrounded by visitors. SKIN: Warm and dry. Mildly kita. HEAD: Normocephalic. EYES: No injection or drainage. NECK: Supple, trachea midline. CARDIOVASCULAR: + S1/S2. No murmur noted RESPIRATORY: Clear anteriorly. Breathing unlabored. GASTROINTESTINAL: Abdomen soft, non-tender, nondistended. EXTREMITIES: Generalized edema bilateral lower extremities NEUROLOGICAL: No obvious focal deficit. Awake, alert, and oriented x3. 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 -- Also noted is a renal mass -- CT-guided biopsy ordered Hx/Workup: Pt has noticed increased swelling in his bilateral lower extremities and his abdomen over the last 1 month Assessment 86 y/o male admitted with bilateral lower extremity edema and increasing abdominal girth over the last 4 weeks found to have a large abdominal mass Plan 1. Obtain MRI of the abdomen and pelvis 2. CT-guided biopsy of the abdominal mass today 3. It'll be helpful to differentiate whether the mass in the kidney and liver are metastatic disease, as this would determine treatment Attending Statement The exam, history, and the medical decision-making described in the above note were completed with the assistance of the mid-level provider. I reviewed and agree with the findings presented. I attest that I had a [id number] encounter with the patient on the same day, and personally performed and documented my assessment and findings in the medical record. Pt seen and examined. Discussed with Dr. Palma. Considered biopsy versus definitive resection with IR and oncologic surgeon. Awaiting MRI to make decision. Meantime 24 hour urine on going to quantitate urine protein loss. Further recommendations depending on pathology. Isabell Reeves Dec 26, 2016 13:35 Jigna Dumont MD Dec 26, 2016 16:01
--- NOTE | 2016-12-26 14:27 | PD.CONS ---
cc: Milton Miramontes MD HPI Service General Surgery/Surgical Oncology Consult Requested By Dr. Dumont Reason for Consult Evaluation of intra-abdominal mass Primary Care Physician Unknown History of Present Illness This is an 86 year old male with a past medical history of prostate cancer, melanoma, hypertension, and obesity. The patient has been in his usual state of health but 4-5 weeks ago noticed an increase in his abdominal girth and a 22 pound weight gain in 1 month. The patient does report that he has shortness of breath when laying flat. He has had no issues with his appetite. He comes to the emergency room for evaluation of of bilateral lower extremity edema and evaluation of intra-abdominal mass. A Surgical Oncology/General Surgery consultation has been requesting. Review of Systems Constitutional: COMPLAINS OF: Weight gain, DENIES: Fatigue, Fever, Chills Endocrine: DENIES: Polydipsia, Polyuria, Polyphagia Eyes: DENIES: Diplopia Ears, nose, mouth, throat: DENIES: Hearing loss, Vertigo Respiratory: COMPLAINS OF: Shortness of breath (when flat ), DENIES: Apneas, Cough Cardiovascular: DENIES: Palpitations Gastrointestinal: DENIES: Abdominal pain, Constipation, Nausea, Vomiting, Difficulty Swallowing Genitourinary: DENIES: Urinary frequency Musculoskeletal: DENIES: Joint pain Integumentary: DENIES: Abnormal pigmentation Hematologic/lymphatic: DENIES: Bruising Immunologic/allergic: DENIES: Eczema Neurologic: DENIES: Headache, Localized weakness Psychiatric: DENIES: Mood changes, Depression, Hallucinations Past Family Social History Past Medical History Prostate cancer Melanoma Hypertension Obesity Lower extremity edema Past Surgical History Open appendectomy Prostatectomy Left jaw surgery Reported Medications Amlodipine Potassium chloride Allergies: Coded Allergies: No Known Allergies (Unverified , 12/25/16) Active Ordered Medications Current Medications Medications (Trade) Dose Ordered Sig/Shanice Route Start Time Stop Time Status Last Admin (NS Flush) 2 ml UNSCH PRN IV FLUSH 12/25/16 19:00 (NS Flush) 2 ml BID IV FLUSH 12/25/16 21:00 12/26/16 08:10 (Tylenol) 650 mg Q4H PRN PO 12/25/16 19:00 (Zofran Inj) 4 mg Q6H PRN IVP 12/25/16 19:00 (Narcan Inj) 0.4 mg UNSCH PRN IV 12/25/16 19:00 (Simona-Colace) 1 tab BID PO 12/25/16 21:00 (Milk Of Magnesia Liq) 30 ml Q12H PRN PO 12/25/16 19:00 (Senokot) 17.2 mg Q12H PRN PO 12/25/16 19:00 (Dulcolax Supp) 10 mg DAILY PRN RECTAL 12/25/16 19:00 (Lactulose Liq) 30 ml DAILY PRN PO 12/25/16 19:00 (Norvasc) 5 mg DAILY PO 12/26/16 12:00 (Vasotec Inj) 1.25 mg Q6H PRN IV 12/25/16 22:00 (Benadryl) 25 mg HS PRN PO 12/26/16 10:15 Family History Mom: age 94, no known cause Dad: 68, cancer Social History Denies tobacco use Denies EtOH use Denies illicit drug use Physical Exam Vital Signs Vital Signs Date Time Temp Pulse Resp B/P Pulse Ox O2 Delivery O2 Flow Rate FiO2 12/26/16 12:14 93 12/26/16 12:00 96.7 76 18 154/87 99 12/26/16 08:00 98.4 81 18 160/87 96 12/26/16 04:00 96.6 82 18 150/83 98 12/26/16 00:00 96.9 85 18 146/72 97 12/25/16 20:00 96.0 78 18 178/99 95 12/25/16 18:32 78 16 158/86 97 12/25/16 17:49 162/90 97 Room Air 12/25/16 17:48 77 16 165/92 96 Room Air Physical Exam GENERAL: Pleasant 86 year old male resting in bed in no acute distress. SKIN: Warm and dry. HEAD: Atraumatic. Normocephalic. EYES: Pupils equal and round. No scleral icterus. No injection or drainage. ENT: No nasal bleeding or discharge. Mucous membranes pink and moist. NECK: Trachea midline. CARDIOVASCULAR: Regular rate and rhythm. RESPIRATORY: No accessory muscle use. Clear to auscultation. Breath sounds equal bilaterally. GASTROINTESTINAL: Abdomen soft, large palpable mass in LUQ and LLE; RUQ and RLQ soft MUSCULOSKELETAL: Bilateral extremities with 2+ edema. NEUROLOGICAL: Awake and alert. No obvious cranial nerve deficits. Motor grossly within normal limits. Five out of 5 muscle strength in the arms and legs. Normal speech. PSYCHIATRIC: Appropriate mood and affect; insight and judgment normal. Laboratory Laboratory Tests Test 12/25/16 12/25/16 12/26/16 14:20 14:30 05:23 White Blood Count 8.5 7.7 Red Blood Count 5.63 5.49 Hemoglobin 16.4 16.1 Hematocrit 50.2 48.6 Mean Corpuscular Volume 89.2 88.5 Mean Corpuscular Hemoglobin 29.2 29.3 Mean Corpuscular Hemoglobin 32.7 33.1 Concent Red Cell Distribution Width 15.4 15.3 Platelet Count 300 312 Mean Platelet Volume 7.9 7.9 Neutrophils (%) (Auto) 63.4 55.7 Lymphocytes (%) (Auto) 24.9 31.9 Monocytes (%) (Auto) 9.5 9.3 Eosinophils (%) (Auto) 1.6 2.3 Basophils (%) (Auto) 0.6 0.8 Neutrophils # (Auto) 5.4 4.3 Lymphocytes # (Auto) 2.1 2.5 Monocytes # (Auto) 0.8 0.7 Eosinophils # (Auto) 0.1 0.2 Basophils # (Auto) 0.1 0.1 CBC Comment DIFF FINAL DIFF FINAL Differential Comment Prothrombin Time 10.8 Prothromb Time International 1.0 Ratio Sodium Level 139 141 Potassium Level 4.4 4.3 Chloride Level 106 110 Carbon Dioxide Level 27.3 26.4 Anion Gap 6 5 Blood Urea Nitrogen 27 25 Creatinine 1.18 1.10 Estimat Glomerular Filtration 59 63 Rate Random Glucose 104 83 Calcium Level 9.8 9.1 Total Bilirubin 0.2 0.2 Aspartate Amino Transf 27 22 (AST/SGOT) Alanine Aminotransferase 25 23 (ALT/SGPT) Alkaline Phosphatase 121 112 Troponin I LESS THAN 0.02 B-Type Natriuretic Peptide 44 Total Protein 5.8 5.4 Albumin 1.3 1.2 Lipase 121 Urine Color YELLOW Urine Turbidity HAZY Urine pH 6.5 Urine Specific [place] 1.045 Urine Protein GREATER THAN 600 Urine Glucose (UA) NEG Urine Ketones NEG Urine Occult Blood MOD Urine Nitrite NEG Urine Bilirubin NEG Urine Urobilinogen LESS THAN 2.0 Urine Leukocyte Esterase NEG Urine RBC 2 Urine WBC 4 Urine Squamous Epithelial 1 Cells Urine Hyaline Casts 9 Urine Mucus MANY Microscopic Urinalysis Comment CULT NOT INDICATED Lactate Dehydrogenase 123 Result Diagram: 12/26/16 0523 12/26/16 0523 Imaging Last 48 hours Impressions Abdomen/Pelvis CT 12/25/16 1445 Signed Impressions: Service Date/Time: Sunday, December 25, 2016 17:07 - CONCLUSION: 1. Abnormal examination demonstrating a very large heterogeneous predominantly fat containing mesenteric mass occupying nearly the entire left abdomen measuring 23.2 x 15.1 x 18.1 cm with additional mesenteric and retroperitoneal satellite lesions, as above. In the absence of recent trauma, this mass is concerning for an infiltrative malignancy or lipomatous mass such as liposarcoma. Lack of noncontrast images limits evaluation of degree of enhancement versus potentially high density material in the mass. Noncontrast CT examination may be performed to definitively assess degree of enhancement. Alternatively, MRI examination may be performed for further characterization if there is continued uncertainty. 2. Ill-defined isodense central lesion in the left renal inferior pole measuring approximately 3.8 x 2.5 cm. Differential considerations include renal lymphoma versus complex parapelvic cyst versus transitional cell carcinoma. This may be further evaluated with MRI or CT renal mass protocol. 3. Trace free fluid in the pelvis with diffuse soft tissue anasarca is prominent in the lower abdomen. 4. Trace bilateral pleural effusions. José Miguel Cannon MD Chest X-Ray 12/25/16 0000 Signed Impressions: Service Date/Time: Sunday, December 25, 2016 14:47 - CONCLUSION: No acute disease. Rajendra Koch MD FACR Abdomen/Pelvis CT 12/25/16 0000 Signed Impressions: Service Date/Time: Sunday, December 25, 2016 18:36 - CONCLUSION: 1. Inconclusive variable degree of density differences in the large heterogeneous left mesenteric mass without convincing evidence for significant enhancement in the lipomatous portion. There is significant increased density in the previously uniformly fluid density portion of the mass which may reflect progressive enhancement given recent contrast administration. This may reflect a very homogeneous and uniform mass such as lymphoma. Differential consideration does include sequela of prior trauma with resolving hematoma although apparently this is inconsistent with clinical history. Consider image guided biopsy/aspiration for further evaluation. 2. A small posterior left perinephric retroperitoneal satellite mass does demonstrate definitive enhancement. 3. Isodense infiltrative lesion in the mid left renal pelvis which appears to involve the anterior cortex doesn't appear to emanate from the renal collecting system and demonstrates no significant enhancement. Differential consideration includes complex peripelvic cyst. Further evaluation may be performed with ultrasound exam or multiphase MRI renal mass protocol. José Miguel Cannon MD Assessment and Plan Assessment and Plan 86 year old male with large intra-abdominal mass -MRI abdomen -NPO -Agree with CT Chest/Thorax -Await results from pathology -Dr. Miramontes to review CT scan -Thank you for this consult; we will continue to follow with you Discussed Condition With Dr. Miramontes Mr. Quiñones + at bedside Attending Statement The exam, history, and the medical decision-making described in the above note were completed with the assistance of the mid-level provider. I reviewed and agree with the findings presented. I attest that I had a [id number] encounter with the patient on the same day, and personally performed and documented my assessment and findings in the medical record. abdominal exam: non-distended, no rebound or peritonitis long d/w patient and , complicated high risk tumor, recommend referral to tertiary center Rachelle Sanchez Dec 26, 2016 14:27 Milton Miramontes MD Jan 01, 2017 10:34
[2016-12-26] MEDS ORDERED: SODIUM CHLOR 0.9% 1000 ML INJ 1,000 ML IV SCH (14:30)
--- NOTE | 2016-12-26 16:44 | RADRPT ---
EXAM DATE/TIME: 12/26/2016 16:27 [facility] COMPARISON: CT ABDOMEN & PELVIS W/O CONTRAST, December 25, 2016, 18:36. INDICATIONS : Intraabdominal mass; evaluate for metastases. RADIATION DOSE: 8.13 CTDIvol (mGy) MEDICAL HISTORY : Carcinoma, prostate. Cardiovascular disease Hypertension. SURGICAL HISTORY : Appendectomy. Prostatectomy. ENCOUNTER: Initial ACUITY: 1 day PAIN SCALE: 0/10 LOCATION: chest TECHNIQUE: Volumetric scanning of the chest was performed. Using automated exposure control and adjustment of t he mA and/or kV according to patient size, radiation dose was kept as low as reasonably achievable to obtain optimal diagnostic quality images. DICOM format image data is available electronically for r eview and comparison. FINDINGS: LUNGS: There is no consolidation or pneumothorax. No concerning pulmonary nodule is visualized. There is mi ld atelectasis in both lung bases. No acute pulmonary infiltrates. PLEURAE: Mild pleural thickening versus small effusions in both bases. MEDIASTINUM: The heart and great vessels demonstrate no acute abnormality. There is no mediastinal or hilar lymph adenopathy. AXILLAE: Within normal limits. No lymphadenopathy. MUSCULOSKELETAL: Within normal limits for patient age. No gross lytic or blastic lesions. MISCELLANEOUS: The visualized upper abdominal organs demonstrate no acute abnormality. CONCLUSION: 1. Mild pleural thickening versus small effusions in both lung bases. 2. Mild bibasilar atelectasis. 3. No acute pulmonary infiltrates or evidence of metastatic disease. Tejinder Talley MD on December 26, 2016 at 16:38 Board Certified Radiologist. This report was verified electronically.
[2016-12-26] MEDS: amLODIPine BESYLATE 5 MG TAB PO SCH (18:13)
[2016-12-26] MEDS ORDERED: GADODIAMIDE PF 287 MG/ML 5 ML VIAL (for RAD MRI) IV ONE (19:18)
--- NOTE | 2016-12-26 19:19 | ECHRPT ---
Indication: Hypertensive heart disease without heart failure, CORONARY ATHEROSCLEROSIS CONCLUSIONS Technically very limited and very difficult study. Grossly left ventricular function is normal. Re gional wall motion abnormalities cannot be excluded. Possible mild aortic valve sclerosis. Other valvular abnormalities cannot be excluded on the basis of this study. BP: 160 / 87 HR: 81 Rhythm: Sinus MEASUREMENTS (Male / Female) Normal Values Technical Quality:Very technically difficult study 2D ECHO LVOT Diameter 2.2 cm FINDINGS LEFT VENTRICLE Grossly left ventricular function is normal. Regional wall motion abnormalities cannot be excluded. RIGHT VENTRICLE The right ventricle was not well visualized. LEFT ATRIUM The left atrial size is normal. RIGHT ATRIUM The right atrium is not well visualized. ATRIAL SEPTUM The interatrial septum not well visualized. AORTA The aortic root and proximal ascending aorta are not well visualized. MITRAL VALVE The mitral valve is not well visualized. AORTIC VALVE The aortic valve is not well visualized. Aortic valve sclerosis is present. TRICUSPID VALVE The tricuspid valve is not well visualized. PULMONARY VALVE The pulmonary valve is not well visualized. Zander Abarca MD (Electronically Signed) Final Date:26 December 2016 19:19
--- NOTE | 2016-12-26 19:31 | EKG ---
Date Performed: 12/25/2016 Time Performed: 17:53:13 PTAGE: 86 years EKG: Sinus rhythm WITH FIRST DEGREE AV BLOCK WITH OCCASIONAL SUPRAVENTRICULAR PREMATURE COMPLEXES MARKED LEFT AXIS DEV IATION INCOMPLETE RIGHT BUNDLE BRANCH BLOCK Compared to previous tracing, there's been some lenghteni ng of the CO interval. The Premature atrial contractions are new. ABNORMAL ECG PREVIOUS TRACING : 10/30/2011 13.38 DOCTOR: Renetta Guerrier Interpretating Date/Time 12/26/2016 19:29:43
--- NOTE | 2016-12-26 23:04 | RADRPT ---
EXAM DATE/TIME: 12/26/2016 18:58 [facility] COMPARISON: CT ABDOMEN & PELVIS W/O CONTRAST, December 25, 2016, 18:36. INDICATIONS : Mass. Edema and weight gain over the past month, abnormal CT. CONTRAST: 24 cc Omniscan (gadodiamide) IV MEDICAL HISTORY : Carcinoma, prostate. Melanoma. SURGICAL HISTORY : Knee surgery, jaw bone replacement and melanoma removed. ENCOUNTER: Initial ACUITY: 1 month PAIN SCORE: 0/10 LOCATION: Abdomen. TECHNIQUE: Multiplanar, multisequence magnetic resonance imaging of the abdomen was performed without and with i ntravenous contrast. FINDINGS: MRI examination was performed to characterize a nonenhancing isodense lesions seen in the left renal pelvis seen on CT scan earlier today. Patient has a greater than 20 cm mass in the left abdominal pe lvic mesentery with regional solid, lipomatous, and mixed components. The lesion in the left inferior renal pelvis measures 3.5 cm in axial dimension and 2.8 cm in superio r-inferior dimension. Margins are smooth. The lesion has slightly increased signal compared to arleth l parenchyma on the T1 weighted images and iso-intense to renal parenchyma on the T2 weighted images. On the dynamic post contrast images, there is no significant enhancement. The appearance suggests a complex parapelvic cyst which does extend into the anterior cortex. No evidence of hydronephrosis. No solid lesions seen in the right kidney. There are several small parapelvic cysts in the right kid harpreet. Multiple small gallstones. There is a mixed pattern of enhancement in the large mesenteric mass. The superior lipomatous compon ent does not demonstrate enhancement, the mixed component demonstrates a lacy pattern of enhancement and the solid component demonstrates a fairly homogeneous pattern of enhancement. There is a satelli te enhancing nodule in the left posterior pararenal space which measures 1.5 cm. CONCLUSION: The lesion in the left kidney inferior renal pelvis is nonenhancing, has smooth margins and has featu res suggestive of a complicated parapelvic cyst. Tye Scott MD on December 26, 2016 at 22:44 Board Certified Radiologist. This report was verified electronically.
[2016-12-27] VITALS: BP 152/73; PULSE 88; RESP 17; TEMP 97.6; O2SAT 97
[2016-12-27 04:00] VITALS: BP 147/89; PULSE 95; RESP 17; TEMP 96; O2SAT 95
[2016-12-27 05:55] LABS: AUTOMATED NEUTROPHIL # 3.6 TH/MM3 (1.8-7.7); BASOPHIL % 0.8 % (0.0-2.0); EOSINOPHIL # 0.2 TH/MM3 (0-0.4); EOSINOPHIL % 3.2 % (0.0-4.0); HEMATOCRIT 46.7 % (39.0-51.0); HEMO FLAGS DIFF FINAL; LYMPH % 30.5 % (9.0-44.0); MEAN CELL VOLUME 88.8 FL (80.0-100.0); MEAN CORPUSCULAR HEMOGLOBIN 29.1 PG (27.0-34.0); MEAN CORPUSCULAR HGB CONC 32.8 % (32.0-36.0); MONO % 10.3 % (0.0-8.0); NEUT % 55.2 % (16.0-70.0); PLATELET COUNT 279 TH/MM3 (150-450); RED BLOOD COUNT 5.26 MIL/MM3 (4.50-5.90); RED CELL DISTRIBUTION WIDTH 15.7 % (11.6-17.2); WHITE BLOOD COUNT 6.6 TH/MM3 (4.0-11.0)
[2016-12-27 06:23] LABS: POTASSIUM 4.4 MEQ/L (3.5-5.1)
[2016-12-27 08:00] LABS: URINE TOTAL PROTEIN TIMED 2702.6 MG/DL
[2016-12-27] MEDS: SODIUM CHLORIDE 0.9% FLUSH 10 ML FLUSH IV FLUSH SCH (08:05)
[2016-12-27 09:00] VITALS: BP 173/91; PULSE 65; RESP 18; TEMP 96.2; O2SAT 96
--- NOTE | 2016-12-27 10:25 | HHI.PR ---
Subjective Subjective Notes Resting in bed at bedside Objective Vitals/I&O Vital Signs Date Time Temp Pulse Resp B/P Pulse Ox O2 Delivery O2 Flow Rate FiO2 12/27/16 09:00 96.2 65 18 173/91 96 12/26/16 19:30 21 12/25/16 17:49 Room Air Labs Laboratory Tests Test 12/27/16 12/27/16 05:11 05:20 White Blood Count 6.6 Red Blood Count 5.26 Hemoglobin 15.3 Hematocrit 46.7 Mean Corpuscular Volume 88.8 Mean Corpuscular Hemoglobin 29.1 Mean Corpuscular Hemoglobin 32.8 Concent Red Cell Distribution Width 15.7 Platelet Count 279 Mean Platelet Volume 7.6 Neutrophils (%) (Auto) 55.2 Lymphocytes (%) (Auto) 30.5 Monocytes (%) (Auto) 10.3 Eosinophils (%) (Auto) 3.2 Basophils (%) (Auto) 0.8 Neutrophils # (Auto) 3.6 Lymphocytes # (Auto) 2.0 Monocytes # (Auto) 0.7 Eosinophils # (Auto) 0.2 Basophils # (Auto) 0.0 CBC Comment DIFF FINAL Differential Comment Sodium Level 143 Potassium Level 4.4 Chloride Level 109 Carbon Dioxide Level 30.0 Anion Gap 4 Blood Urea Nitrogen 25 Creatinine 1.22 Estimat Glomerular Filtration 56 Rate Random Glucose 79 Calcium Level 9.0 Urine Total Volume 24 Hours 650 Urine Total Protein 24 Hour 37898 Radiology Last 48 hours Impressions Abdomen/Pelvis CT 12/25/16 1445 Signed Impressions: Service Date/Time: Sunday, December 25, 2016 17:07 - CONCLUSION: 1. Abnormal examination demonstrating a very large heterogeneous predominantly fat containing mesenteric mass occupying nearly the entire left abdomen measuring 23.2 x 15.1 x 18.1 cm with additional mesenteric and retroperitoneal satellite lesions, as above. In the absence of recent trauma, this mass is concerning for an infiltrative malignancy or lipomatous mass such as liposarcoma. Lack of noncontrast images limits evaluation of degree of enhancement versus potentially high density material in the mass. Noncontrast CT examination may be performed to definitively assess degree of enhancement. Alternatively, MRI examination may be performed for further characterization if there is continued uncertainty. 2. Ill-defined isodense central lesion in the left renal inferior pole measuring approximately 3.8 x 2.5 cm. Differential considerations include renal lymphoma versus complex parapelvic cyst versus transitional cell carcinoma. This may be further evaluated with MRI or CT renal mass protocol. 3. Trace free fluid in the pelvis with diffuse soft tissue anasarca is prominent in the lower abdomen. 4. Trace bilateral pleural effusions. José Miguel Cannon MD Chest X-Ray 12/25/16 0000 Signed Impressions: Service Date/Time: Sunday, December 25, 2016 14:47 - CONCLUSION: No acute disease. Rajendra Koch MD FACR Abdomen/Pelvis CT 12/25/16 0000 Signed Impressions: Service Date/Time: Sunday, December 25, 2016 18:36 - CONCLUSION: 1. Inconclusive variable degree of density differences in the large heterogeneous left mesenteric mass without convincing evidence for significant enhancement in the lipomatous portion. There is significant increased density in the previously uniformly fluid density portion of the mass which may reflect progressive enhancement given recent contrast administration. This may reflect a very homogeneous and uniform mass such as lymphoma. Differential consideration does include sequela of prior trauma with resolving hematoma although apparently this is inconsistent with clinical history. Consider image guided biopsy/aspiration for further evaluation. 2. A small posterior left perinephric retroperitoneal satellite mass does demonstrate definitive enhancement. 3. Isodense infiltrative lesion in the mid left renal pelvis which appears to involve the anterior cortex doesn't appear to emanate from the renal collecting system and demonstrates no significant enhancement. Differential consideration includes complex peripelvic cyst. Further evaluation may be performed with ultrasound exam or multiphase MRI renal mass protocol. 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 Miramontes has contacted Sarcoma Specialist at [facility]----patient will go to [place] to see him next week for possible multiple visceral resection -GS clear for DC Attending Statement The exam, history, and the medical decision-making described in the above note were completed with the assistance of the mid-level provider. I reviewed and agree with the findings presented. I attest that I had a [id number] encounter with the patient on the same day, and personally performed and documented my assessment and findings in the medical record. abdominal exam: non-distended, no rebound or peritonitis d/w family and patient, they want to go to [facility], will help facilitate referral as OP Rachelle Sanchez Dec 27, 2016 10:24 Milton Miramontes MD Jan 01, 2017 10:35
[2016-12-27] MEDS ORDERED: LORazepam 0.5 MG TAB PO PRN (10:30)
[2016-12-27] MEDS: amLODIPine BESYLATE 5 MG TAB PO SCH (10:55)
[2016-12-27] MEDS: DOCUSATE SODIUM 50 MG/SENNA 8.6 MG TAB PO SCH (10:55)
[2016-12-27 12:00] VITALS: BP 164/96; PULSE 88; TEMP 96; O2SAT 97
[2016-12-27] MEDS ORDERED: NORC5TAB PO (12:25)
[2016-12-27] MEDS ORDERED: ZOFR4TAB3 SL (12:25)
--- NOTE | 2016-12-27 12:27 | HHI.DCPOC ---
Discharge Care Plan Diagnosis: (1) Intraabdominal mass Goals to Promote Your Health * To prevent worsening of your condition and complications, please follow up with sarcoma specialists at [facility]. * To maintain your health at the optimal level, please take medications as prescribed. Directions to Meet Your Goals Take your medications as prescribed Follow your dietary instruction Follow activity as directed Keep your appointments as scheduled Take your immunizations and boosters as scheduled If your symptoms worsen call your PCP, if no PCP go to Urgent Care Center or Emergency Room Smoking is Dangerous to Your Health. Avoid second hand smoke Call the 24-hour hour crisis hotline for domestic abuse at Ahsan Cowart MD R1 Dec 27, 2016 12:27
--- NOTE | 2016-12-27 14:46 | HHI.FPPN ---
Subjective Remarks Patient denies any pain, SOB, chest pain or any other complaints. Possible increase in edema in the left arm but notices a decrease in lower extremity edema. Was NPO for possible CT bx today but has good appetite. (Christie Wright MD R1) Objective Vitals Vital Signs Date Time Temp Pulse Resp B/P Pulse Ox O2 Delivery O2 Flow Rate FiO2 12/27/16 12:00 96.0 88 164/96 97 12/27/16 09:00 96.2 65 18 173/91 96 12/27/16 04:00 96.0 95 17 147/89 95 12/27/16 00:00 97.6 88 17 152/73 97 12/26/16 20:00 97.8 91 17 163/80 97 12/26/16 19:30 21 12/26/16 16:00 96.5 81 16 155/89 96 I/O 12/26/16 12/26/16 12/26/16 12/27/16 12/27/16 12/27/16 07:00 15:00 23:00 07:00 15:00 23:00 Intake Total 480 ml 0 ml 240 ml 377 ml Output Total 550 ml 450 ml 150 ml 200 ml Balance -70 ml -450 ml 90 ml -200 ml 377 ml Intake Oral 480 ml 0 ml 240 ml 120 ml IV Total 257 ml Output Urine Total 550 ml 450 ml 150 ml 200 ml # Voids 1 # Bowel Movements 0 (Christie Wright MD R1) Result Diagram: 12/27/16 0511 12/27/16 0511 Imaging Last 72 hours Impressions Abdomen MRI 12/26/16 0000 Signed Impressions: Service Date/Time: December 18:58 - CONCLUSION: The lesion in the left kidney inferior renal pelvis is nonenhancing, has smooth margins and has features suggestive of a complicated parapelvic cyst. Tye Scott MD Abdomen/Pelvis CT 12/25/16 1445 Signed Impressions: Service Date/Time: Sunday, December 25, 2016 17:07 - CONCLUSION: 1. Abnormal examination demonstrating a very large heterogeneous predominantly fat containing mesenteric mass occupying nearly the entire left abdomen measuring 23.2 x 15.1 x 18.1 cm with additional mesenteric and retroperitoneal satellite lesions, as above. In the absence of recent trauma, this mass is concerning for an infiltrative malignancy or lipomatous mass such as liposarcoma. Lack of noncontrast images limits evaluation of degree of enhancement versus potentially high density material in the mass. Noncontrast CT examination may be performed to definitively assess degree of enhancement. Alternatively, MRI examination may be performed for further characterization if there is continued uncertainty. 2. Ill-defined isodense central lesion in the left renal inferior pole measuring approximately 3.8 x 2.5 cm. Differential considerations include renal lymphoma versus complex parapelvic cyst versus transitional cell carcinoma. This may be further evaluated with MRI or CT renal mass protocol. 3. Trace free fluid in the pelvis with diffuse soft tissue anasarca is prominent in the lower abdomen. 4. Trace bilateral pleural effusions. José Miguel Cannon MD Chest X-Ray 12/25/16 0000 Signed Impressions: Service Date/Time: Sunday, December 25, 2016 14:47 - CONCLUSION: No acute disease. Rajendra Koch MD FACR Chest CT 12/25/16 0000 Signed Impressions: Service Date/Time: December 16:27 - CONCLUSION: 1. Mild pleural thickening versus small effusions in both lung bases. 2. Mild bibasilar atelectasis. 3. No acute pulmonary infiltrates or evidence of metastatic disease. Tejinder Talley MD Abdomen/Pelvis CT 12/25/16 0000 Signed Impressions: Service Date/Time: Sunday, December 25, 2016 18:36 - CONCLUSION: 1. Inconclusive variable degree of density differences in the large heterogeneous left mesenteric mass without convincing evidence for significant enhancement in the lipomatous portion. There is significant increased density in the previously uniformly fluid density portion of the mass which may reflect progressive enhancement given recent contrast administration. This may reflect a very homogeneous and uniform mass such as lymphoma. Differential consideration does include sequela of prior trauma with resolving hematoma although apparently this is inconsistent with clinical history. Consider image guided biopsy/aspiration for further evaluation. 2. A small posterior left perinephric retroperitoneal satellite mass does demonstrate definitive enhancement. 3. Isodense infiltrative lesion in the mid left renal pelvis which appears to involve the anterior cortex doesn't appear to emanate from the renal collecting system and demonstrates no significant enhancement. Differential consideration includes complex peripelvic cyst. Further evaluation may be performed with ultrasound exam or multiphase MRI renal mass protocol. José Miguel Cannon MD Last 48 hours Impressions Abdomen MRI 12/26/16 0000 Signed Impressions: Service Date/Time: December 18:58 - CONCLUSION: The lesion in the left kidney inferior renal pelvis is nonenhancing, has smooth margins and has features suggestive of a complicated parapelvic cyst. Tye Scott MD Objective Remarks GENERAL: in NAD, no resp distress. Nontoxic. Accompanied by significant other. HEENT: NCAT, EOMI, no scleral icterus. No conjunctival injection. MMM. CV: 3/6 systolic murmur heard best at right upper sternal border. RRR, S1 S2. CHEST/PULM: CTAB, no crackles, no wheezes. ABD/GI: +BS, soft, Nontender. Obese. Mild distention. Dullness to percussion along left abdomen, which correlates to firmness / mass palpable. EXT: 2+ pitting edema to knee. 1+ pitting edema at upper extremities. NEURO: awake, alert, normal muscle tone. SKIN: No rashes, no jaundice. (Christie Wright MD R1) A/P Assessment and Plan 86 y/o M w/hx of prostate cancer and melanoma who is admitted for work-up of abdominal mass. CT of abdomen on admission shows 23.2 x 15.1 x 18.1 cm mesenteric mass and retroperitoneal satellite lesion, Ill-defined isodense central lesion in the left renal inferior pole measuring approximately 3.8 x 2.5 cm, and free fluid and diffuse anasarca. Abdominal enlargement likely due to multiple cancerous tumors. (Christie Wright MD R1) Attending Attestation Patient seen and examined, discussed with resident team. I agree with assessment and management as documented and discussed with me. Pt seen with significant other and daughter at bedside. He has some questions about follow up at [facility], which was arranged by Dr. Miramontes. Discharge home today. Greater than 30 minutes spent by me personally counselling and coordinating care at discharge. (Piedad Palma MD) Problem List: (1) Intraabdominal mass Status: Acute Plan: CT abdomen showed a very large heterogeneous predominantly fat containing mesenteric mass with additional retroperitoneal satellite lesions. Concern for infiltrative malignancy or lipomatous mass such as liposarcoma. 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 - will order lasix as needed (3) Systolic murmur Status: Acute Plan: - 2/6 murmer heard in the upper right sternal border suggesting aortic stenosis -patient has no cardiac hx and no known valvular disease - echo shows mild aortic valve sclerosis - advise f/u w/outpatient PCP (4) HTN (hypertension) Status: Chronic Plan: - Continue home amlodipine. (5) Proteinuria Status: Acute Plan: - Unclear etiology. - 24 hour urine shows 17 g protein - Clinical presentation along with lab findings suggest nephrotic syndrome (alb of 1.2, total protein 5.4, elevated BUN) related to carcinoma or lymphoma - F/u w/nephrology in addition to oncology FEN: minimize salt and fluid intake, regular diet DVT prophy: SCDs CODE: Full Dispo: D/C today (Christie Wright MD R1) Christie Wright MD R1 Dec 27, 2016 14:46 Piedad Palma MD Dec 27, 2016 20:16
[2016-12-27] MEDS ORDERED: CIPR-9 PO (15:07)
--- NOTE | 2016-12-27 15:08 | PD.ONC.PN ---
Subjective Subjective Remarks Afebrile overnight. Complaining of dysuria--burning with urination. Just started today. Patient has had discharge order placed and is going to follow up at [facility] on Friday. Denies blood in urine. Denies penile discharge. Objective Data Date Time Temp Pulse Resp B/P Pulse Ox O2 Delivery O2 Flow Rate FiO2 12/27/16 12:00 96.0 88 164/96 97 12/27/16 09:00 96.2 65 18 173/91 96 12/27/16 04:00 96.0 95 17 147/89 95 12/27/16 00:00 97.6 88 17 152/73 97 12/26/16 20:00 97.8 91 17 163/80 97 12/26/16 19:30 21 12/26/16 16:00 96.5 81 16 155/89 96 12/27/16 12/27/16 12/27/16 07:00 15:00 23:00 Intake Total 377 ml Output Total 200 ml Balance -200 ml 377 ml Result Diagram: 12/27/16 0511 12/27/16 0511 Laboratory Results Laboratory Tests Test 12/27/16 12/27/16 05:11 05:20 White Blood Count 6.6 TH/MM3 Red Blood Count 5.26 MIL/MM3 Hemoglobin 15.3 GM/DL Hematocrit 46.7 % Mean Corpuscular Volume 88.8 FL Mean Corpuscular Hemoglobin 29.1 PG Mean Corpuscular Hemoglobin 32.8 % Concent Red Cell Distribution Width 15.7 % Platelet Count 279 TH/MM3 Mean Platelet Volume 7.6 FL Neutrophils (%) (Auto) 55.2 % Lymphocytes (%) (Auto) 30.5 % Monocytes (%) (Auto) 10.3 % Eosinophils (%) (Auto) 3.2 % Basophils (%) (Auto) 0.8 % Neutrophils # (Auto) 3.6 TH/MM3 Lymphocytes # (Auto) 2.0 TH/MM3 Monocytes # (Auto) 0.7 TH/MM3 Eosinophils # (Auto) 0.2 TH/MM3 Basophils # (Auto) 0.0 TH/MM3 CBC Comment DIFF FINAL Differential Comment Sodium Level 143 MEQ/L Potassium Level 4.4 MEQ/L Chloride Level 109 MEQ/L Carbon Dioxide Level 30.0 MEQ/L Anion Gap 4 MEQ/L Blood Urea Nitrogen 25 MG/DL Creatinine 1.22 MG/DL Estimat Glomerular Filtration 56 ML/MIN Rate Random Glucose 79 MG/DL Calcium Level 9.0 MG/DL Urine Total Volume 24 Hours 650 ML Urine Total Protein 24 Hour 96359 MG/24HR Administered Medications Medications (Trade) Dose Ordered Sig/Shanice Route PRN Reason Start Time Stop Time Status Last Admin Dose Admin Sodium Chloride (NS Flush) 2 ml BID IV FLUSH 12/25/16 21:00 12/26/16 08:10 Amlodipine Besylate 5 mg 5 mg DAILY PO 12/26/16 12:00 12/27/16 10:55 Sodium Chloride (NS 1000 ml Inj) 1,000 ml @ 42 mls/hr [id number] IV 12/26/16 14:30 12/26/16 15:14 Objective Remarks GENERAL: Elderly male, upright in bed in nad. SKIN: Warm and dry. HEAD: Normocephalic. EYES:No injection or drainage. NECK: Supple, trachea midline. CARDIOVASCULAR: Regular rate and rhythm RESPIRATORY: Breath sounds equal bilaterally. No accessory muscle use. GASTROINTESTINAL: Abdomen soft, non-tender, nondistended. EXTREMITIES: No cyanosis NEUROLOGICAL: No obvious focal deficit. Awake, alert, and oriented x3. 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 -- Also noted is a renal mass Hx/Workup: Pt has noticed increased swelling in his bilateral lower extremities and his abdomen over the last 1 month Assessment 86 y/o male admitted with bilateral lower extremity edema and increasing abdominal girth over the last 4 weeks found to have a large abdominal mass Plan 1. obtain urinalysis 2. d/c on cipro 3. fs faxed to [facility]pr for follow up once discharged--patient going to [facility] on Friday but may need local follow up after that Nevin Espinal Dec 27, 2016 15:08
--- NOTE | 2016-12-27 17:23 | HHI.DS ---
Discharge Summary Admission Date Dec 25, 2016 at 18:10 Discharge Date: Dec 27, 2016 Admitting Diagnosis intra-abdominal mass, possible malignancy, ascites (1) Intraabdominal mass Diagnosis: Principal Plan: CT abdomen showed a very large heterogeneous predominantly fat containing mesenteric mass with additional retroperitoneal satellite lesions. Concern for infiltrative malignancy or lipomatous mass such as liposarcoma. 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 - will order lasix as needed (3) Proteinuria Plan: - Unclear etiology. - 24 hour urine shows 17 g protein - Clinical presentation along with lab findings suggest nephrotic syndrome (alb of 1.2, total protein 5.4, elevated BUN) related to carcinoma or lymphoma - F/u w/nephrology in addition to oncology (4) Systolic murmur Plan: - 2/6 murmer heard in the upper right sternal border suggesting aortic stenosis -patient has no cardiac hx and no known valvular disease - echo shows mild aortic valve sclerosis - advise f/u w/outpatient PCP (5) HTN (hypertension) Plan: - Continue home amlodipine. Consultants Oncology General Surgery Brief History Patient is a 86 y/o w/ hx of prostate cancer and melanoma removal. Abdominal mass started to appear 4-5 weeks ago. Noticed 22 lb weight gain. No N/V/pain. No fevers, night sweats. No diarrhea. Has noticed constipation in the last couple days this week, relieved with X lax. Has not experienced anything like this in the past. Hx of prostate cancer 20 years ago, treated with surgery. Patient denies change in urine frequency or flow or hematuria. Denies recent travel, insect bites, chest pain, SOB (although states he occasionally has to take a few extra deep breaths), alcohol use, hx of GI disease. Patient is taking doxycycline for recent infection of jaw fissure. CBC/BMP: 12/27/16 0511 12/27/16 0511 Significant Findings Laboratory Tests Test 12/25/16 12/25/16 12/26/16 12/27/16 14:20 14:30 05:23 05:11 Monocytes (%) (Auto) 9.5 % (0.0-8.0) 9.3 % (0.0-8.0) 10.3 % (0.0-8.0) Blood Urea Nitrogen 27 MG/DL (7-18) 25 MG/DL (7-18) 25 MG/DL (7-18) Estimat Glomerular Filtration 59 ML/MIN (>89) 63 ML/MIN (>89) 56 ML/MIN (>89) Rate Alkaline Phosphatase 121 U/L (45-117) Troponin I LESS THAN 0.02 NG/ML (0.02-0.05) Total Protein 5.8 GM/DL 5.4 GM/DL (6.4-8.2) (6.4-8.2) Albumin 1.3 GM/DL 1.2 GM/DL (3.4-5.0) (3.4-5.0) Urine Turbidity HAZY (CLEAR) Urine Specific [place] 1.045 (1.002-1.035) Urine Protein GREATER THAN 600 mg/dL (NEG-TRACE) Urine Occult Blood MOD (NEG) Urine Mucus MANY /lpf (OCC) Chloride Level 110 MEQ/L 109 MEQ/L (98-107) (98-107) Anion Gap 4 MEQ/L (5-15) Test 12/27/16 05:20 Urine Total Protein 24 Hour 70661 MG/24HR (0-150) Imaging Last 72 hours Impressions Abdomen MRI 12/26/16 0000 Signed Impressions: Service Date/Time: December 18:58 - CONCLUSION: The lesion in the left kidney inferior renal pelvis is nonenhancing, has smooth margins and has features suggestive of a complicated parapelvic cyst. Tye Scott MD Abdomen/Pelvis CT 12/25/16 1445 Signed Impressions: Service Date/Time: Sunday, December 25, 2016 17:07 - CONCLUSION: 1. Abnormal examination demonstrating a very large heterogeneous predominantly fat containing mesenteric mass occupying nearly the entire left abdomen measuring 23.2 x 15.1 x 18.1 cm with additional mesenteric and retroperitoneal satellite lesions, as above. In the absence of recent trauma, this mass is concerning for an infiltrative malignancy or lipomatous mass such as liposarcoma. Lack of noncontrast images limits evaluation of degree of enhancement versus potentially high density material in the mass. Noncontrast CT examination may be performed to definitively assess degree of enhancement. Alternatively, MRI examination may be performed for further characterization if there is continued uncertainty. 2. Ill-defined isodense central lesion in the left renal inferior pole measuring approximately 3.8 x 2.5 cm. Differential considerations include renal lymphoma versus complex parapelvic cyst versus transitional cell carcinoma. This may be further evaluated with MRI or CT renal mass protocol. 3. Trace free fluid in the pelvis with diffuse soft tissue anasarca is prominent in the lower abdomen. 4. Trace bilateral pleural effusions. José Miguel Cannon MD Chest X-Ray 12/25/16 0000 Signed Impressions: Service Date/Time: Sunday, December 25, 2016 14:47 - CONCLUSION: No acute disease. Rajendra Koch MD FACR Chest CT 12/25/16 0000 Signed Impressions: Service Date/Time: December 16:27 - CONCLUSION: 1. Mild pleural thickening versus small effusions in both lung bases. 2. Mild bibasilar atelectasis. 3. No acute pulmonary infiltrates or evidence of metastatic disease. Tejinder Talley MD Abdomen/Pelvis CT 12/25/16 0000 Signed Impressions: Service Date/Time: Sunday, December 25, 2016 18:36 - CONCLUSION: 1. Inconclusive variable degree of density differences in the large heterogeneous left mesenteric mass without convincing evidence for significant enhancement in the lipomatous portion. There is significant increased density in the previously uniformly fluid density portion of the mass which may reflect progressive enhancement given recent contrast administration. This may reflect a very homogeneous and uniform mass such as lymphoma. Differential consideration does include sequela of prior trauma with resolving hematoma although apparently this is inconsistent with clinical history. Consider image guided biopsy/aspiration for further evaluation. 2. A small posterior left perinephric retroperitoneal satellite mass does demonstrate definitive enhancement. 3. Isodense infiltrative lesion in the mid left renal pelvis which appears to involve the anterior cortex doesn't appear to emanate from the renal collecting system and demonstrates no significant enhancement. Differential consideration includes complex peripelvic cyst. Further evaluation may be performed with ultrasound exam or multiphase MRI renal mass protocol. José Miguel Cannon MD PE at Discharge GENERAL: in NAD, no resp distress. Nontoxic. Accompanied by significant other. HEENT: NCAT, EOMI, no scleral icterus. No conjunctival injection. MMM. CV: 3/6 systolic murmur heard best at right upper sternal border. RRR, S1 S2. CHEST/PULM: CTAB, no crackles, no wheezes. ABD/GI: +BS, soft, Nontender. Obese. Mild distention. Dullness to percussion along left abdomen, which correlates to firmness / mass palpable. EXT: 2+ pitting edema to knee. 1+ pitting edema at upper extremities. NEURO: awake, alert, normal muscle tone. SKIN: No rashes, no jaundice. Hospital Course Patient is an 86 y/o male w/hx of prostate cancer and melanoma who presented w/ growing intra-abdominal mass and admitted for work-up. Patient presented with diffuse pitting edema in upper and lower extremities, but denied pain or shortness of breath. Upon arrival to the ED on 12/25/16, CT abdomen and MRI of abdomen and pelvis were ordered in the ED. CT abdomen found mesenteric mass occupying nearly the entire left abdomen measuring 23.2 x 15.1 x 18.1 cm with additional mesenteric and retroperitoneal satellite lesions, as above. In the absence of recent trauma, this mass is concerning for an infiltrative malignancy or lipomatous mass such as liposarcoma. Ill-defined isodense central lesion in the left renal inferior pole measuring approximately 3.8 x 2.5 cm. Diffuse soft tissue anasarca is prominent in the lower abdomen and trace bilateral pleural effusions were noted as well. MRI showed possibly complicated parapelvic cyst on patient's left kidney. U/A showed significant amounts of proteinuria, low albumin, and elevated BUN consistent w/nephrotic syndrome/protein-wasting nephropathy (possibly due to the cancer). General surgery and oncology were consulted and CT with biopsy was planned. However, upon consultation among the teams, it was decided it would be best for patient to be d/c for treatment at [place] to continue work-up and care. Plan was discussed with patient and family, who were in agreement. Pt Condition on Discharge: Stable Discharge Disposition: Discharge Home Discharge Instructions DIET: Follow Instructions for: As Tolerated, No Restrictions (Minimize salt and fluid intake) Activities you can perform: Regular-No Restrictions Follow up Referrals: Oncology - 3-5 Days Surgical - 3-5 Days New Medications: Ciprofloxacin (Cipro) 500 Mg Tab 500 MG PO BID Infection Days 7 Ref 0 TAB Hydrocodone-Acetaminophen ([place]) 5-325 mg Tab 1 TAB PO Q4H PRN PAIN #10 Ref 0 TAB Ondansetron Odt (Zofran Odt) 4 Mg Tab 4 MG SL Q6HR PRN Nausea/Vomiting #10 Ref 0 TAB Continued Medications: Amlodipine Besylate (Amlodipine Besylate) 1 Gm Powder Doxycycline Hyclate (Doxycycline Hyclate) 100 Mg Cap 100 MG PO BID Infection Ref 0 CAP Doxycycline Hyclate (Doxycycline Hyclate) 50 Mg Cap 50 MG PO BID Infection Ref 0 CAP Potassium Chloride ER (Klor-Con 10) 10 Meq Tab 10 MEQ PO DAILY Electrolyte Replacement #30 Ref 0 TAB Christie Wright MD R1 Dec 27, 2016 17:23
== END 2016-12-27 16:01 | disposition home or self-care (01) | DRG 392 ==
LOC: NEPE 12:34 → NEDA 18:10 → HOCA 18:59
PROVIDERS: ADMIT Family Medicine; ATTEND Family Medicine
DX: R19.00 Intra-abdominal and pelvic swelling, mass and lump, unspecified site (principal); J90 Pleural effusion, not elsewhere classified; C76.2 Malignant neoplasm of abdomen; N04.9 Nephrotic syndrome with unspecified morphologic changes; R18.8 Other ascites; E66.9 Obesity, unspecified; Z85.46 Personal history of malignant neoplasm of prostate; Z79.01 Long term (current) use of anticoagulants; Z85.820 Personal history of malignant melanoma of skin; Z68.38 Body mass index [BMI] 38.0-38.9, adult
CPT/HCPCS: 71010; 71250; 74176; 74177; 74183; 80048; 80053; 81001; 83615; 83690; 83880; 84157; 84484; 85025; 85610; 88112; 93005; 93306; A9579; J7030; J7040; Q9967

== ENCOUNTER 2017-02-10 14:31 | Emergency (ER) | payer MEDICARE ==
[~2017-02-10 14:31] MED LIST changes: +AMLO1POW4; -AMLO2.5T PO; -CEPH500C3 PO; +CIPR-9 PO; +DOXY100C PO; +DOXY50 PO; -LOVA1TAB47 PO; +NORC5TAB PO; +POTA-243 PO; -VICO7.5T PO; +ZOFR4TAB3 SL
[2017-02-10] MEDS ORDERED: CALCIUM CHLORIDE 10% SOLN 1 GRAM/10 ML SYR IV ONE (14:32)
[2017-02-10] MEDS ORDERED: SODIUM BICARBONATE 8.4% INJ 50 MEQ/50 ML SYR IV ONE (14:32)
[2017-02-10] MEDS ORDERED: EPINEPHrine HCL (1:10,000) 1 MG/10 ML SYRINGE IV ONE (14:32)
--- NOTE | 2017-02-10 15:02 | PD ---
HPI Chief Complaint: Code Blue Time Seen by Provider: 14:47 Travel History International Travel<30 days: No Contact w/Intl Traveler<30days: No Traveled to known affect area: No History of Present Illness HPI 86-year-old male brought in by Fire in cardiac arrest. Patient was in the car with his when she noticed he was unresponsive. 911 was called, and upon medic arrival to the scene they found the patient unresponsive, apneic, pulseless. Initial rhythm was PEA. CPR initiated by medics. Combitube placed by them as well as a right pretibial IO. Prior to arriving to the emergency department the patient had received 2 rounds of epi. Upon arrival to the emergency department, CPR continued, and ACLS protocol followed. Combitube was probably changed for an ET tube by me. The patient was given 3 more rounds of epinephrine, 2 rounds of sodium bicarbonate, and an amp of calcium chloride. Pulse checks in the emergency department showed asystole. At 1435 bedside ultrasound was performed and shows no cardiac activity, no pericardial effusion. Patient pronounced at this time. PFSH Past Medical History Hx Anticoagulant Therapy: Yes Cancer: Yes (SKIN CA) Cardiovascular Problems: Yes High Cholesterol: Yes Chemotherapy: Yes (Prostate) Endocrine: No Genitourinary: No Hypertension: Yes Immune Disorder: No Musculoskeletal: No Neurologic: No Psychiatric: No Reproductive: No Respiratory: No Radiation Therapy: Yes Past Surgical History Appendectomy: Yes Genitourinary Surgery: Yes (prostatectomy due to cancer) Joint Replacement: Yes (LT KNEE, LT JAW) Pacemaker: No Prostatectomy: Yes Social History Alcohol Use: No Tobacco Use: No Substance Use: No Allergies-Medications (Allergen,Severity, Reaction): Coded Allergies: No Known Allergies (Unverified , 12/25/16) Reported Meds & Prescriptions Reported Meds & Active Scripts Active Cipro (Ciprofloxacin HCl) 500 Mg Tab 500 Mg PO BID 7 Days Zofran Odt (Ondansetron Odt) 4 Mg Tab 4 Mg SL Q6HR PRN [place] (Hydrocodone-Acetaminophen) 5-325 mg Tab 1 Tab PO Q4H PRN Reported Amlodipine Besylate 1 Gm Powder Klor-Con 10 (Potassium Chloride) 10 Meq Tab 10 Meq PO DAILY Doxycycline Hyclate 50 Mg Cap 50 Mg PO BID Doxycycline Hyclate 100 Mg Cap 100 Mg PO BID Review of Systems Except as stated in HPI: all other systems reviewed are Neg Physical Exam Narrative GENERAL: Well-developed, well-nourished, obtunded SKIN: Focused skin assessment warm/dry. HEAD: Atraumatic. Normocephalic. EYES: Pupils fixed and dilated. ENT: Combitube in place. CARDIOVASCULAR: Pulseless, CPR in progress. RESPIRATORY: No spontaneous respirations. GASTROINTESTINAL: Abdomen soft, nondistended. MUSCULOSKELETAL: No obvious deformities. No clubbing. No cyanosis. No edema. Right pretibial IO. NEUROLOGICAL: Obtunded. No response to painful or verbal stimuli. MDM Medical Decision Making Medical Screen Exam Complete: Yes Emergency Medical Condition: Yes Medical Record Reviewed: Yes Differential Diagnosis Cardiac arrest, PE, NH, metabolic abnormality, pericardial effusion Narrative Course See HPI Patient pronounced at 1435. 1450: I inform the patient's in person that the patient has been pronounced . 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 While on the way home, the patient appeared to have gone to sleep. About 30 minutes later, when they arrived at home, the patient's could not arouse the patient. This is when she called 911. Procedures Procedure Narrative Emergent intubation: Combitube removed, the patient was intubated with a 7.5 Pashto ET tube. Placement confirmed with equal breath sounds bilaterally as well as color change capnometry. Aggregate critical care time was 35 minutes. Time to perform other separately billable procedures was not included in the critical care time. My time did not include minutes spent treating any other patients simultaneously or on activities that did not directly contribute to the patient's treatment. I provided critical care services requiring my management, as noted below: Chart data review, documentation time, medication orders and management, vital sign assessments/reviewing monitor data, ordering and reviewing lab tests, ordering and interpreting/reviewing x-rays and diagnostic studies, care of the patient and discussion of the patient with the admitting physicians, CPR. Diagnosis Primary Impression: Cardiac arrest Felix De Jesus MD Feb 10, 2017 15:02
== END 2017-02-10 17:20 | disposition expired ==
LOC: PHED 14:31
DX: I46.9 Cardiac arrest, cause unspecified (principal)
CPT/HCPCS: 31500; 92950; 99291; J0171